=== PATIENT | male | born 1960 | race Caucasian/White ===

== ENCOUNTER 2017-05-31 16:20 | Inpatient (IN) | payer OTHER ==
[2017-05-31] VITALS (13 sets, daily range): BP systolic 124–162; BP diastolic 82–98; PULSE 89–112; RESP 16–29; O2SAT 92–96
[~2017-05-31] VITALS: Ht 180.3 cm; Wt 101.4 kg
[~2017-05-31 16:20] MED LIST: CAPE500T15 PO; LISI10TA PO; MESA1.2T2 PO; OMEP20CA11 PO; OMEP20TA24 PO; URSO300C2 PO
--- NOTE | 2017-05-31 17:03 | DRSVH ---
PROCEDURE: X-RAY CHEST ONE VIEW, PORTABLE ([id number]) INDICATIONS: SOB TECHNIQUE: One view of the chest was acquired. COMPARISON: [facility], , CHEST 1VW (PORTABLE), 03/08/2014, 6:43. FINDINGS: Surgical changes and devices: None. Lungs and pleura: No pleural effusions or pneumothorax. Lungs are clear. Mediastinum: Mediastinal contours appear normal. Heart size is normal. Bones and chest wall: No suspicious bony lesions. Overlying soft tissues appear unremarkable. IMPRESSION: No acute process. Dictated by: Ashley Morley M.D. on 05/31/2017 at 17:01 Approved by: Ashley Morley M.D. on 05/31/2017 at 17:01
[2017-05-31 17:58] LABS: EOSINOPHILS % (AUTO) 2.8 % (0-5)
[2017-05-31 18:01] LABS: BASOPHILS % (AUTO) 1.5 % (0-3); MONOCYTES % (AUTO) 10.6 % (4-12); Mean Corpuscular Hemoglobin 30.2 pg (27.0-35.0); Mean Corpuscular Volume 87.5 fL (81-100); NEUTROPHILS % (AUTO) 63.4 % (40-74); Platelet Count 280 bil/L (150-400)
[2017-05-31 18:13] LABS: INR 1.22 ratio
[2017-05-31 18:23] LABS: Magnesium 1.4 mg/dL (1.6-2.6)
--- NOTE | 2017-05-31 18:39 | ED.REPORT ---
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 His current symptoms feel similar to his previous PE and similar to his previous infections that required hospitalization at . Patient recently began Eliquis a few weeks ago and has been taking his antirejection medication as prescribed. Recent associated symptoms include fatigue, chills and general malaise. Patient reports that his symptoms have been constant since onset. His symptoms are not exacerbated by deep breath and are not relieved by anything. He denies any recent fever, abdominal pain, headache, unilateral weakness/ numbness, nausea, vomiting, diarrhea or chest pain. Nursing Notes Stated Complaint: SOB,POSS PULMONARY EMBOLISM Chief Complaint: Chest Pain Nursing Notes Reviewed: Yes Allergies: Coded Allergies: No Known Allergies (Unverified Allergy, Unknown, 11/22/16) Scheduled Capecitabine (Capecitabine) 500 Mg Tablet 1,500 MG PO Q12H ONE WEEK ON TWO WEEKS OFF Lisinopril (Lisinopril) 10 Mg Tablet 10 MG PO DAILY Mesalamine (Lialda) 1.2 Gm Tablet. 1.2 GM PO BID Omeprazole (Omeprazole) 20 Mg Capsule. 20 MG PO BID Omeprazole Magnesium (Prilosec Otc) 20 Mg Tablet. 20 MG PO BID Ursodiol (Ursodiol) 300 Mg Capsule 600 MG PO BID General Time Seen by MD: 16:41 Chief Complaint Other (SOB) Hx Obtained From: Patient Arrived By: Walk-in Sudden in Onset?: No Onset Occurred: 4 days ago Symptom Duration: Since onset Associated with: Reports: Shortness of breath, Denies: Abdominal pain, Chest pain, Fever, Headache, Nausea, Numb extremities , Vomiting, Weakness Pertinent Negative: Pt denies other symptoms Pertinent Negative: Exacerbated by nothing, Relieved by nothing Recent Healthcare: Recent doctor visit, Recent hospitalization Past Medical History Past Medical History Liver transplant Crohn's disease Known PE Primary sclerosing cholangitis w/ hilar cholangiocarcinoma Past Surgical History Liver transplant Smoking History Never Smoker Social History Other Social History: Good social support, Local resident Ambulatory Status Independent Review of Systems Full Review of Systems Constitutional: Reports: Chills, Fatigue, Malaise, Denies: Fever Respiratory: Reports: Shortness of breath Cardiovascular: Denies: Chest pain GI: Denies: Abdominal pain, Diarrhea, Nausea, Vomiting Neurologic: Denies: Headache, Numbness, Weakness Complete sys rev & neg: except as marked. Physical Exam Nursing note and vitals reviewed. Constitutional: Well-developed, well-nourished. Not diaphoretic. Head: Normocephalic and atraumatic. Mouth/Throat: Oropharynx is clear and moist. No oropharyngeal exudate. Eyes: EOM are normal. Pupils are equal, round, and reactive to light. Neck: Supple, no tracheal deviation. Cardiovascular: Tachycardic, regular rhythm. Equal and intact distal pulses throughout. Pulmonary/Chest: Effort normal and breath sounds normal. No respiratory distress. Abdominal: Soft. No distension. There is no tenderness, rebound, or guarding. Bowel sounds present. Musculoskeletal: Range of motion grossly intact, moving all extremities. No edema or tenderness appreciated. Neurological: AOx3. Grossly nonfocal exam. Strength and sensation intact and equal to bilateral upper and lower extremities. Skin: Warm and dry, no rashes or pallor appreciated. Psychiatric: Appropriate mood and affect. Behavior appears normal. Vital Signs Vital Signs Date Time Temp Pulse Resp B/P Pulse Ox O2 Delivery O2 Flow Rate FiO2 05/31/17 21:15 99 27 156/87 96 Nasal Cannula 2 05/31/17 21:00 98 29 162/87 96 Nasal Cannula 2 05/31/17 20:45 97 26 160/86 95 Room Air 05/31/17 19:15 106 26 152/98 94 Room Air 05/31/17 19:00 103 28 136/85 92 Room Air 05/31/17 18:30 104 26 129/86 93 Room Air 05/31/17 18:00 103 27 138/82 93 Room Air 05/31/17 17:45 104 25 138/82 94 Room Air 05/31/17 17:15 102 26 135/84 93 Room Air 05/31/17 16:53 100 17 136/89 96 Room Air 05/31/17 16:25 38 112 16 124/87 96 Room Air Interpretation & Diagnostics Lab Results Interpretation Result Diagram: 05/31/17 1750 05/31/17 1750 Test 05/31/17 17:50 05/31/17 18:05 White Blood Count 7.9th/mm3 (3.8-10.1) Red Blood Count 4.87mil/mm3 (4.40-5.80) Hemoglobin 14.7g/dL (13.8-17.2) Hematocrit 42.6% (41.0-50.0) Mean Corpuscular Volume 87.5fL (81-100) Mean Corpuscular Hemoglobin 30.2pg (27.0-35.0) Mean Corpuscular Hemoglobin Concent 34.5% (32.0-37.0) Red Cell Distribution Width 14.7% (12.3-15.4) Platelet Count 280bil/L (150-400) Neutrophils (%) (Auto) 63.4% (40-74) Lymphocytes (%) (Auto) 21.2% (14-46) Monocytes (%) (Auto) 10.6% (4-12) Eosinophils (%) (Auto) 2.8% (0-5) Basophils (%) (Auto) 1.5% (0-3) Prothrombin Time 13.1sec (8.1-12.5) Prothromb Time International Ratio 1.22ratio Activated Partial Thromboplast Time 31.7sec (22.8-33.0) Sodium Level 129mEq/L (134-144) Potassium Level 4.8mEq/L (3.5-5.2) Chloride Level 91mEq/L (97-108) Carbon Dioxide Level 19mmol/L (18-29) Blood Urea Nitrogen 17mg/dL (6-24) Creatinine 1.20mg/dL (0.76-1.27) Estimat Glomerular Filtration Rate 66mL/min (>59) Glucose Level 145mg/dL (60-99) Calcium Level 8.9mg/dL (8.5-10.1) Magnesium Level 1.4mg/dL (1.6-2.6) Total Bilirubin 0.7mg/dL (0.0-1.2) Aspartate Amino Transf (AST/SGOT) 22U/L (0-50) Alanine Aminotransferase (ALT/SGPT) 23U/L (0-44) Alkaline Phosphatase 146U/L (25-150) Troponin T < 0.010ug/L (0.0-0.011) Total Protein 6.9g/dL (6.4-8.4) Albumin 3.8g/dL (3.4-5.0) Lipase 7U/L (13-60) Lactic Acid Level 1.9mmol/L (0.4-2.0) ECG Interpretation ECG Interpretation: Sinus tachycardia Rate 104 Q wave and T wave inversions in V3 No prior for comparison Time: 17:24 Interpreted by: ED physician X-Ray Chest Interpretation Chest Xray Interpretation: IMPRESSION: No acute process Dictated by: Ashley Morley M.D. on 05/31/2017 at 17:01 Interpretation / Wet Read by: Interpret - Radiologist CT Chest Interpretation IMPRESSION: 1. Right lower lobe pulmonary embolus. 2. Small hiatal hernia. 3. Small amount of perihepatic ascites. 4. Findings discussed with Nehemias Wilkinson on 05.31.17 at 1952 hrs. Dictated by: Ashley Morley M.D. on 05/31/2017 at 19:45 Study type: CT pulm angiogram Interpretation / Wet Read by: Interpret - Radiologist Re-Eval/Medical Decision Med Decision/Clinical Course In summary, 57-year-old male with a history of primary sclerosing cholangitis with hilar cholangiocarcinoma status post radiation therapy and liver transplant in December presenting to the ED for evaluation of worsening shortness of breath over the past 4 days. Differential is broad and includes pulmonary embolus, ACS, anemia, acute infectious process such as a pneumonia or UTI, transplant rejection. No chest pain, EKG does have T-wave inversions in V3 , no prior for comparison, but otherwise no acute ischemic changes. Chest x- ray with no evidence of pneumonia. CMP notable for a sodium of 129, magnesium of 1.4 (repleted here in the ED). CBC grossly within normal limits. CT scan demonstrates a right lower lobe pulmonary embolus, small hiatal hernia, and a small amount of perihepatic ascites. Given the patient's complex history, his transplant team at [facility] in [place] was contacted; please see below for details. Patient started on a heparin drip here in the ED for his pulmonary embolus; he may need to transition to warfarin if it is felt that his current anticoagulation is insufficient. Discussed at length with the patient. Agreeable to the plan as stated, no further questions. Time of Eval: 19:23 Re-Evaluation/Progress Note: Family will attempt to find the patient's transplant coodinator. Time of Eval: 20:07 Re-Evaluation/Progress Note: Patient's symptoms have improved. He is informed of his postive CT result at this time. He is agreeable to admission at this time. Time of Eval: 20:57 Patient Status: Condition improved Re-Evaluation/Progress Note: Discussed consultation recommendations with the patient. Consultation #1: Referral / Consult Name: Jaron Magallanes MD Consulted With: Hospitalist Call Returned at: 22:23 Transliterator: Will see patient, Agrees with eval, Agrees with plan, Accepts admit Consultation #2: Call Returned at: 20:42 Transliterator: Agrees with eval, Agrees with plan Note: Paint Formulator (Vijay LAY) approves plan to use Heparin Consultation #3: Call Returned at: 20:53 Transliterator: Agrees with eval, Agrees with plan Note: Dr. Nguyễn - Agrees with plan to admit and gradually switch the patient from Eliquis to Warfarin. ) Counseled Regarding: Diagnosis, Lab results, Need for admission Discharge & Departure Primary Impression: Pulmonary embolism Pulmonary embolism type: other Chronicity: acute Acute cor pulmonale presence: without acute cor pulmonale Qualified Code: I26.99 - Other pulmonary embolism without acute cor pulmonale Additional Impression: Ascites of liver Disposition: ADMITTED TO HOSPITAL Discharge Condition All VS Reviewed: Yes Condition: Stable Referrals: Va Ro PA-C (PCP) Crit Care Except Billable Proc Time Spent: 75-104 minutes Services Performed: Patient management by me, Time spent at bedside, Reviewing test results, Reviewing imaging, Discussing patient care, Documentation in record, Time with fam/surrogate Scribe Attestation Portions of this note were transcribed by Dalila Nicole. I, Dr. Wilkinson personally performed the history, physical exam and medical decision-making; I reviewed and confirmed the accuracy of the information in the transcribed note. Signed by: Rigo Mccall, 05/31/17 0502. copies to: Va Ro PA-C, William B MD May 31, 2017 18:39 DALILA NICOLE May 31, 2017 19:12 Crit Care Except Billable Proc Time Spent: 75-104 minutes Services Performed: Patient management by me, Time spent at bedside, Reviewing test results, Reviewing imaging, Discussing patient care, Documentation in record, Time with fam/surrogate Scribe Attestation Portions of this note were transcribed by Dalila Nicole. I, Dr. Wilkinson personally performed the history, physical exam and medical decision-making; I reviewed and confirmed the accuracy of the information in the transcribed note. Signed by: Rigo Mccall, 05/31/17 2235. copies to: Va Ro PA-C, William B MD May 31, 2017 18:39 DALILA NICOLE May 31, 2017 19:12
[2017-05-31] MEDS ORDERED: Magnesium Sulf 2 Gm/50mL Water 2 GM in IV Premix 1 EACH IV ONE (19:25)
[2017-05-31] MEDS ORDERED: 0.9% Sodium Chloride 1,000 ML IV ONE (19:25)
--- NOTE | 2017-05-31 19:53 | DRSVH ---
PROCEDURE: CT ANGIO CHEST PULMONARY EMBOLISM ([id number]) INDICATIONS: dyspnea w/ hx of cancer; eval PE, other abnl TECHNIQUE: After the administration of intravenous contrast, 2 mm thick sections acquired from the pulmonary api lawanda to the posterior costophrenic angles. 3-dimensional maximum intensity projection (MIP) coronal a nd sagittal reformats were then acquired through the thorax. For radiation dose reduction, the follo wing was used: automated exposure control, adjustment of mA and/or kV according to patient size. COMPARISON: [facility], MR, ABDOMEN W/O CONTRAST, 01/15/2014, 18:26. FINDINGS: Image quality: Excellent. Pulmonary arteries: Pulmonary arteries are normal in size. Tubular filling defects are seen within t he subsegmental atelectasis is present in Lungs and pleura: Lungs are clear. No pleural effusions or pneumothorax. Central and peripheral ai rways are patent. Mediastinum: Heart size is normal, without pericardial effusion. No mediastinal or hilar adenopathy . Thoracic aorta is normal in caliber and enhancement. Esophagus is normal in caliber. There is a s mall hiatal hernia. Bones and chest wall: No suspicious bony lesions. Ribs and thoracic spine appear intact throughout. Thyroid gland is unremarkable. No axillary or supraclavicular adenopathy. Abdomen: Visualized portions of the upper abdomen demonstrate a small amount of perihepatic ascites as well as pneumobilia. IMPRESSION: 1. Right lower lobe pulmonary embolus. 2. Small hiatal hernia. 3. Small amount of perihepatic ascites. 4. Findings discussed with Nehemias Wilkinson on 05.31.17 at 1952 hrs. Dictated by: Ashley Morley M.D. on 05/31/2017 at 19:45 Approved by: Ashley Morley M.D. on 05/31/2017 at 19:51
[2017-05-31] MEDS ORDERED: Heparin 5,000 Unit/mL Inj IVPUSH ONE ×2 (20:45→21:20)
[2017-05-31] MEDS ORDERED: Heparin 25K Unit/500mL 0.45 NS 25,000 UNIT in IV Premix 1 EACH IV ONE ×2 (20:45→21:20)
[2017-05-31] MEDS ORDERED: Polyethylene Glycol (PEG) 17 Gm Powder PO PRN (23:20)
[2017-05-31] MEDS ORDERED: Heparin 5,000 Unit/mL Inj IVPUSH PRN (23:20)
[2017-05-31] MEDS ORDERED: 0.9% Sodium Chloride 500 ML IV ONE (23:20)
[2017-05-31] MEDS ORDERED: Ondansetron 2 mg/mL 2 mL Inj IVPUSH PRN (23:20)
[2017-05-31] MEDS ORDERED: Senna-Docusate 8.6-50 mg Tablet PO PRN (23:20)
[2017-05-31] MEDS ORDERED: Alum-Mag Hydrox-Simeth 30 mL Suspension PO PRN (23:20)
[2017-05-31] MEDS ORDERED: Heparin 25K Unit/500mL 0.45 NS 25,000 UNIT in IV Premix 1 EACH IV SCH (23:20)
[2017-05-31] MEDS ORDERED: Magnesium Chloride SR 64 mg ER24 Tablet PO SCH (23:25)
[2017-06-01] VITALS (8 sets, daily range): BP systolic 124–149; BP diastolic 79–90; PULSE 89–108; RESP 16–18; O2SAT 90–96
[2017-06-01] MEDS: Sodium Chloride LOK Flush 10 mL Syringe IVFLUSH SCH ×4 (00:30→23:32)
[2017-06-01 01:06] LABS: APPEARANCE,URINE CLEAR (CLEAR,HAZY); COLOR,URINE YELLOW (YELLOW); OCCULT BLOOD,URINE NEGATIVE (NEGATIVE); PH,URINE 5.5 (5.0-8.0)
[2017-06-01 01:08] LABS: UROBILINOGEN,URINE NORMAL (NORMAL)
--- NOTE | 2017-06-01 02:20 | PCM.HPMED ---
Subjective Date of Service May 31, 2017 Primary Provider: Admitting Physician: Jaron Magallanes MD Primary Care Physician: Va Ro PA-C Attending Physician: Jaron Magallanes MD Chief Complaint: shortness of breath History of Present Illness: Abhijeet is a 57 yo M with a complex medical history who presents for concerns of acute onset of SOB and lethargy x 4 days. His history is pertinent for Crohn's disease, Dm2, and also primary sclerosing cholangitis with cholangiocarcinoma status post radiation therapy and recent liver transplant approximately 5 months ago in [place]. Patient reports that he had a 4 month follow-up of his liver transplantation in April, when it was found that he had a pulmonary emboli. As a result he was placed on Lovenox injection until he returned to [place]. Here he was switched from the injections to Eliquis, which he reports taking diligently for the past 1.5 weeks. He states that he was recovering well from the surgery and his breathing was somewhat diminished but at baseline prior to this episode. Four days ago, he noted sudden onset of SOB and gradual worsening. He noted some palpitations, but denies any CP, ROMERO, diaphoresis, abd pain, or fevers/chills. 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 He denies any recent illnesses and has not had a flare up of his Crohn's disease. He has had poor PO intake due to his SOB and being more lethargic in the last few days. He has slept most of the weekend and finally came in when his symptoms did not improve. He is on Bactrim, Fluconazole, and Valganciclovir prophylaxis until 06/22. In the ED he was noted be febrile with temperature of 38 and tachycardic with a pulse of 112 but normotensive His CBC was benign CMP was notable for a mag of 1.4 and mildly decreased sodium and chloride levels. Due to symptoms, CTA was performed which showed a right lower lobe pulmonary embolus. ED physician discussed the results with patient's advertising coordinator and Dr. Nguyễn who recommended starting heparin drip and is switching from Eliquis to warfarin Review of Systems: Comprehensive review of systems was conducted with the patient and found to be negative except as noted above in HPI. Allergies Coded Allergies: No Known Allergies (Unverified Allergy, Unknown, 11/22/16) Home Medications From [employer] Medication Name Directions Bactrim 400 mg-80 mg tablet take 1 tablet by ORAL route every day until 06/22/17 Blood Glucose Test strips Use 1 Strip by External route 2 times every day to check blood sugars fluconazole 200 mg tablet take 1 tablet by oral route every day glimepiride 2 mg tablet take 1 tablet by oral route every day Lancets,Thin use to test BS 2 times daily Lialda 1.2 g tablet,delayed release take 2 tablet by oral route every day with a meal Lovenox 100 mg/mL subcutaneous syringe inject (1MG/KG) by subcutaneous route every 12 hours metformin ER 500 mg tablet,extended release 24 hr take 2 tablet by oral route 2 times every day with the evening meal metoprolol tartrate 50 mg tablet take 1 tablet by oral route 2 times every day with meals Prilosec 20 mg capsule,delayed release take 1 capsule by oral route every day before a meal tacrolimus 0.5 mg capsule take 1 capsule by oral route every day ursodiol 250 mg tablet take 2 - 4 (3.25MG/KG) by oral route 2 times every day with food valganciclovir 450 mg tablet take 2 tablet by oral route every day with food until 06/22/17 PMH Primary sclerosing cholangitis Cholangiocarcinoma status post radiation and liver transplantation in [place] in early 2016 Crohn's disease T2DM HTN Surgical History Appendectomy Liver transplantation in 2017 Family History Family history of diabetes Social History Occupation: moving picture producer Hx Alcohol Use: No Hx Substance Use: No Hx Tobacco Use: No Smoking Status: Never Smoker Living Arrangement: with Family Exam Vital Signs Vital Sign - Last Date Time Temp Pulse Resp B/P Pulse Ox O2 Delivery O2 Flow Rate FiO2 05/31/17 21:15 99 27 156/87 96 Nasal Cannula 2 05/31/17 16:25 38 Exam General: Obese male who presented acute distress while lying down in bed HEENT: Normocephalic, atraumatic. External ears without defect. PERRLA, EOMI. Anicteric sclerae, moist conjunctivae, and no lid lag. Oropharynx mildly dry but pink Neck: Supple with full range of motion. No jugular venous distension. Cardiovascular: Regular rate and rhythm with soft systolic murmur Pulmonary: Clear to auscultation bilaterally with no crackles, wheezes, or rhonchi. Mildly increased respiratory effort while on 2L nasal cannula Abdomen: Bowel tones present. Soft, nontender, nondistended. No hepatosplenomegaly or masses appreciated. Large incision scar in wish bone formation Extremities: No clubbing, cyanosis, or edema noted Skin: Normal temperature, turgor, and texture; no rash, ulcers, or subcutaneous nodules appreciated. Neurological: Cranial nerves grossly intact. Normal muscle strength, tone, and bulk. Reflexes, coordination, and sensory function within normal limits. No known gait impairment. Psychiatric: Normal mood and affect. Alert and oriented to person, place, and time. Cooperative and pleasant Lab and Diagnostics Result Diagram: 05/31/17174905/31/171749 X-Rays, CTs and MRIs PROCEDURE: CT ANGIO CHEST PULMONARY EMBOLISM ([id number]) IMPRESSION: 1. Right lower lobe pulmonary embolus. 2. Small hiatal hernia. 3. Small amount of perihepatic ascites. 4. Findings discussed with Nehemias Wilkinson on 05.31.17 at 1952 hrs. PROCEDURE: X-RAY CHEST ONE VIEW, PORTABLE ([id number]) IMPRESSION: No acute process. Assessment & Plan Abhijeet is a 57 yo M with a complex medical history who presents for concerns of acute onset of SOB and lethargy x 4 days. His history is pertinent for Crohn's disease, Dm2, and also primary sclerosing cholangitis with cholangiocarcinoma status post radiation therapy and recent liver transplant approximately 5 months ago in [place]. He is admitted for acute recurrent Pulmonary emboli despite being on Eliquis. Acute Recurrent Pulmonary Emboli, POA Pt was placed on PE heparin gtt protocol in the ED per recommendation of Transplant physician, Dr. Lebron, in [place]. They recommended switching to Warfarin, but considering the recurrence, perhaps an IVC filter may be indicated also. Patient's Oncologist was Dr. Gonzalez, consider consulting him in the AM for further recommendations Will place on Telemetry for CV monitoring Will order Echo and trend Troponins to assess heart function with the multiple PEs. Fever, POA Likely due to the PE, but will continue monitoring for any other s/s of infection. He denied any fevers/chills, or pain on admit. Inflammatory markers pending H/o of Liver Transplantation, POA Uncertain of extent of transplant. May need to obtain records and consult the attending provider for further information. Dr. Nguyễn -([phone]) Will continue his home prophylaxis meds There was some noted caitlin-hepatic ascites, which may need further evaluation if he develops any abd pain. Dehydration, POA Patient's poor PO intake in the last few days may be why his Sodium and Chloride is mildly low Will continue to hydrate with 500 mls of IV NS at 150cc/hr. He received 1 L of NS bolus in the ED Continue to monitor electrolytes T2DM, POA Last A1c a month ago was 7.2. Will hold his Glipizide and metformin due to recent contrast imaging. Crohn's Disease, POA Stable, not in exacerbation. Will continue his home medications when Med Rec is complete Essential HTN, POA Stable, continue home medications when Med Rec is complete CODE STATUS: Full resuscitation Patient is admitted under inpatient status with expected length of stay greater than 2 midnights due to severity of presenting symptoms, risk of adverse event, and complexity of treatment plan. Pain Evaluation: Adequate Pain Control VTE Prophylaxis: Other (heparin drip) Resuscitation Status: CPR: Attempt Resuscitation Attending Statement The patient was seen and examined together with Dr. Aparicio on 05/31 and I agree with the history, exam and plan as outlined in the note above. Wilmer Aparicio DO May 31, 2017 23:35 Jaron Magallanes MD Jun 01, 2017 02:38
[2017-06-01 03:57] LABS: BASOPHILS % (AUTO) 1.6 % (0-3); EOSINOPHILS % (AUTO) 3.8 % (0-5); MONOCYTES % (AUTO) 7.3 % (4-12); Mean Corpuscular Hemoglobin 30.5 pg (27.0-35.0); Mean Corpuscular Volume 87.8 fL (81-100); NEUTROPHILS % (AUTO) 65.1 % (40-74); Platelet Count 280 bil/L (150-400)
[2017-06-01 04:50] LABS: TROPONIN T 0.01 ug/L (0.0-0.011)
[2017-06-01 05:16] LABS: Magnesium 1.8 mg/dL (1.6-2.6)
--- NOTE | 2017-06-01 05:39 | NUR ---
ED Admission/ Heparin Infusion Received from ED via gurney, ambulated to bed without symptom. A/O, able to verbalize needs. Denies SOB, or chest pain. Reports recent symptoms included fatigue, chills, general malaise, and SOB x4days. Indicates recent history of PE, on Eliquis. Current Heparin gtt, titrated per PE protocol. Second IV started in right hand, NS infusing. VSS stable. Tele: Sinus Tach in 90s, SPo2 96% on RA. to return in am with home medication for reconciliation. Heparin infusing @ 18mg/kg (per ED start), PTT draw @ 0400, reported critical value- Heparin stopped. MD notified (Dr. QUINN), orders to repeat PTT, every hr. until therapeutic. Report given to on coming RN.
[2017-06-01] MEDS ORDERED: METF-778 PO (09:08)
[2017-06-01] MEDS ORDERED: METO50TA3 PO (09:12)
[2017-06-01] MEDS ORDERED: ATOR20TA PO (09:12)
[2017-06-01] MEDS ORDERED: TACR0.5P MC (09:12)
[2017-06-01] MEDS ORDERED: APIX5TAB PO (09:12)
[2017-06-01] MEDS ORDERED: SULF1TAB34 PO (09:16)
[2017-06-01] MEDS ORDERED: FLUC200T5 PO (09:16)
--- NOTE | 2017-06-01 10:00 | NUR ---
Med Rec Medication Rec complete via pt source interview and home medication bottles that brought in. will take home medications when she leaves later tonight. MD aware and will order medications to be started.
[2017-06-01] MEDS: Pantoprazole 40 mg ER24 Tablet PO SCH ×2 (10:48→20:49)
[2017-06-01] MEDS: Trimethoprim-Sulfa 160 mg-800 mg Tablet PO SCH (10:48)
[2017-06-01] MEDS ORDERED: Glucose 40% Oral Gel 15 Gm Tube PO PRN (13:45)
[2017-06-01] MEDS: Insulin LISPRO 300 Unit/3 mL Inj SUBQ SCH ×2 (17:13→22:00)
[2017-06-01] MEDS ORDERED: Meropenem Inj 1,000 MG in 0.9% Sodium Chloride 100 ML IV SCH (19:10)
[2017-06-01] MEDS ORDERED: MEROPENEM IV SCH (20:05)
[2017-06-01] MEDS ORDERED: SODIUM CHLORIDE 0.9% IV SCH (20:05)
[2017-06-01] MEDS: DAPTOMYCIN IV SCH (20:47)
[2017-06-01] MEDS: SODIUM CHLORIDE 0.9% IV SCH (20:47)
[2017-06-01] MEDS: Meropenem Inj 2,000 MG in 0.9% Sodium Chloride 100 ML IV SCH (20:51)
--- NOTE | 2017-06-01 21:40 | PCM.PNMED ---
Subjective Date of Service Jun 01, 2017 Subjective Today, Mr. Ramírez is resting in bed comfortably and in no acute distress. He is not feeling any pain currently at this time. He says he's breathing well on 4L of oxygen. He is not having any nausea, vomiting. Around 1700, he started to spike a fever after being afebrile for some time and having body aches. He has a history of needing frequent ERCP due to his prior history of primary schlerosing cholangitis and cholangiocarcinoma. He mentions his symptoms feel similar to the times he has needed urgent ERCP in the past. Exam Vital Signs Vital Sign - Last Date Time Temp Pulse Resp B/P Pulse Ox O2 Delivery O2 Flow Rate FiO2 06/01/17 03:33 37.9 94 18 131/79 92 Room Air 05/31/17 21:15 2 Intake and Output 05/31/17 05/31/17 06/01/17 Cumulative From/Thru 15:00 23:00 07:00 05/31/17 16:25 - 06/01/17 05:20 Intake Total 1000 ml 948 ml 1948 ml Output Total 350 ml 350 ml Balance 1000 ml 598 ml 1598 ml Intake Oral 200 ml 200 ml IV Total 1000 ml 748 ml 1748 ml Output Urine Total 350 ml 350 ml # Bowel Movements 0 0 Exam General: Obese male who presented acute distress while lying down in bed HEENT: Normocephalic, atraumatic. External ears without defect. PERRLA, EOMI. Anicteric sclerae, moist conjunctivae. Neck: Supple with full range of motion. No jugular venous distension. Cardiovascular: Regular rate and rhythm with no murmurs, rubs or gallops. Pulmonary: Clear to auscultation bilaterally with no crackles, wheezes, or rhonchi. Mildly increased respiratory effort while on 2L nasal cannula Abdomen: Bowel tones present. Soft, nontender, nondistended. No hepatosplenomegaly or masses appreciated. Large incision scar in wish bone formation Extremities: No clubbing, cyanosis, or edema noted Skin: Normal temperature, turgor, and texture; no rash, ulcers, or subcutaneous nodules appreciated. Neurological: Cranial nerves grossly intact. Normal muscle strength, tone, and bulk. Psychiatric: Normal mood and affect. Alert and oriented to person, place, and time. Cooperative and pleasant IVs and Medications Medications Reviewed: Medications were reviewed in detail Lab and Diagnostics Item Value Date Time Activated Partial Thromboplast Time 222.9 sec *H 06/01/17 0505 Activated Partial Thromboplast Time 248.8 sec *H 06/01/17 0330 Prothrombin Time 13.1 sec H 05/31/17 1750 Prothromb Time International Ratio 1.22 ratio 05/31/17 1750 Troponin T 0.010 ug/L 06/01/17 0330 Troponin T 0.010 ug/L 06/01/17 0037 C-Reactive Protein 5.1 mg/dL H 06/01/17 0143 Urine Hyaline Casts Rare /lpf 06/01/17 0047 Urine Bacteria Few /hpf 06/01/17 0047 Urine Epithelial Cells Occasional /hpf 06/01/17 0047 Urine WBC 0-5 /hpf 06/01/17 0047 Urine RBC 0-2 /hpf 06/01/17 0047 Urine Leukocyte Esterase Negative 06/01/17 0047 Urine Nitrite Negative 06/01/17 0047 Urine Specific [place] 1.070 06/01/17 0047 Urine pH 5.5 06/01/17 0047 Urine Color Yellow 06/01/17 0047 Result Diagram: 06/01/17 0330 06/01/17 0330 X-Rays, CTs and MRIs PROCEDURE: CT ANGIO CHEST PULMONARY EMBOLISM ([id number]) IMPRESSION: 1. Right lower lobe pulmonary embolus. 2. Small hiatal hernia. 3. Small amount of perihepatic ascites. 4. Findings discussed with Nehemias Wilkinson on 05.31.17 at 1952 hrs. PROCEDURE: X-RAY CHEST ONE VIEW, PORTABLE ([id number]) IMPRESSION: No acute process. Assessment & Plan Abhijeet is a 57 yo M with a complex medical history who presents for concerns of acute onset of SOB and lethargy x 4 days. His history is pertinent for Crohn's disease, Dm2, and also primary sclerosing cholangitis with cholangiocarcinoma status post radiation therapy and recent liver transplant approximately 5 months ago in [place]. He is admitted for acute recurrent Pulmonary emboli despite being on Eliquis. Acute Recurrent Pulmonary Emboli, Present on admission Per recommendation of Dr. Gonzalez, patient switched to Xarelto. Started 15 mg BID. It was recommended not to start Warfarin as it is difficult to monitor with prophylactic antibiotics and tacrolimus. Will place on Telemetry for CV monitoring Echocardiogram is pending, troponin x2 negative - Dr. Gonzalez will see patient 06/02/17 Fever, Present on admission, active Likely due to the PE, but will continue monitoring for any other s/s of infection. He denied any fevers/chills, or pain on admit. - After extensive discussion with Dr. Mena and Dr. Powell ( GI), they both did not feel this was related to his history of primary sclerosing cholangitis as the liver function tests are normal. Dr. Powell recommended if liver function tests become abnormal or if gram negative rods are seen on blood culture, then to consider further management. Both doctors reassured that pneumobilia on CT is likely normal given his liver transplant. - Infectious Disease consulted. - Repeat Blood cultures. Ordered Fungal blood cultures, MRSA swab, fungitell assay - Started empirically on IV daptomycin and meropenem given complex medical history. H/o of Liver Transplantation, Present on admission Uncertain of extent of transplant. May need to obtain records and consult the attending provider for further information. Dr. Nguyễn -() Will continue his home prophylaxis meds, fluconazole, TMP-SMX There was some noted caitlin-hepatic ascites, which may need further evaluation if he develops any abd pain. Dehydration, Present on admission Patient's poor PO intake in the last few days may be why his Sodium and Chloride is mildly low Continue to monitor electrolytes Diabetes Mellitus Type 2, chronic Last A1c a month ago was 7.2. Will hold his Glipizide and metformin due to recent contrast imaging. Crohn's Disease, chronic Stable, not in exacerbation. Essential HTN, chronic VTE Prophylaxis: Other (heparin drip) Resuscitation Status: CPR: Attempt Resuscitation Attending Statement The patient was seen and examined together with Dr. Robledo on 06/01/2017 and I agree with the history, exam and plan as outlined in the note above. . Jaron Robledo DO Jun 01, 2017 06:42 Avelino Kim MD Jun 04, 2017 17:21
[2017-06-02] VITALS (8 sets, daily range): BP systolic 117–133; BP diastolic 74–89; PULSE 84–132; RESP 16–22; O2SAT 87–96
[2017-06-02] MEDS: Meropenem Inj 2,000 MG in 0.9% Sodium Chloride 100 ML IV SCH ×3 (04:55→21:00)
[2017-06-02 04:59] LABS: MONOCYTES % (AUTO) 9 % (4-12); Mean Corpuscular Hemoglobin 30.6 pg (27.0-35.0); Mean Corpuscular Volume 89 fL (81-100); NEUTROPHILS % (AUTO) 62 % (40-74); Platelet Count 264 bil/L (150-400)
[2017-06-02 05:00] LABS: BASOPHILS % (AUTO) 2 % (0-3); EOSINOPHILS % (AUTO) 3 % (0-5)
--- NOTE | 2017-06-02 06:34 | NUR ---
Febrile Assumed care ~193. Pt. A/O x3, GARRIDO, resting sporadically with eyes closed. Febrile this shift, given 325mg Tylenol per order (Dr. QUINN). Infectious disease MD consulted ([place]) and started on serial antibiotics, began after culture spec. obtained. Tele remains ST in 100s. Indicated no further needs, safety checks in place. Report given to on coming RN
[2017-06-02] MEDS: Insulin LISPRO 300 Unit/3 mL Inj SUBQ SCH ×4 (08:00→22:00)
--- NOTE | 2017-06-02 08:24 | DRSVH ---
Formerly [facility] [address] [place] [address] Echocardiogram Report Name: CHIP DILLON JStudy Date : 06/01/2017 Height: 71 in Hospital Exam Location: [facility] Weight: 22 6 lb Gender: Male BSA: 2.2 m2 : 1960 Age: 57 yrs BP: 131/79 mmHg Reason For Study: Pulmonary- Embolism Ordering Physician: HOSPITALIST [facility] Performed By: Abby Nuñez Referring Physician[facility] Interpretation Summary The left ventricle is normal in size, wall thickness, and systolic function without any focal wall motion abnormalities. The ejection fraction is estimated to be 65-70%. The right ventricle is normal in size and function. Pulmonary artery pressures cannot be estimated because of the lack of a measurable TR jet velocity. Both atria are normal in size. There is no significant valvular heart disease. The ascending aorta is mild-moderately enlarged. Procedure: A two-dimensional transthoracic echocardiogram with color flow and Doppler was performed. The study quality was technically difficult. There is no prior echocardiogram noted for this patient. A contrast injection of Definity was performed to improve assessment of LV function. The heart rate ranged between 90-106 bpm during the study. Left Ventricle: The left ventricle is normal in size, wall thickness, and systolic function without any focal wall motion abnormalities. The ejection fraction is estimated to be 65-70%. Assessment of diastolic parameters indicates normal left ventricular diastolic function and normal filling pressures. Right Ventricle: The right ventricle is normal in size and function. Atria: Both atria are normal in size. Inter-atrial septum not visualized. Mitral Valve: The mitral valve is normal in structure and function. There is no mitral regurgitation noted. Aortic Valve: The aortic valve is trileaflet. The aortic valve opens well. No aortic regurgitation is present. Tricuspid Valve: The tricuspid valve is not well visualized, but is grossly normal. There is a trace or physiologic amount of tricuspid regurgitation. Pulmonary artery pressures cannot be estimated because of the lack of a measurable TR jet velocity. Pulmonic Valve: The pulmonic valve leaflets are thin and pliable; valve motion is normal. There is a trace or physiologic amount of pulmonic regurgitation. There is no significant valvular heart disease. Great Vessels: The aortic root is normal size. The ascending aorta is mild- moderately enlarged. The aortic arch is normal in size. The pulmonary is not well visualized. The inferior vena cava was not visualized. Pericardium/ Pleura There is no pericardial effusion. There is no pleural effusion. MMode/2D Measurements & Calculations LVIDd: 5.0 cm RA long axis LVOT diam: 2.4 cm LVIDs: 2.4 cm LA A2 area: 18.6 cm AoV Opening FS: 51.1 % LA A4 area: 19.0 cm RA area EPSS: 0.25 cm LA length (vol) Ao root diam IVSd: 0.96 cm : 13.3 cm LVPWd: 0.91 cm LA vol: 60.0 ml RA vol asc Aorta Diam LA vol index : 27.8 ml RA Ao Arch Diam (Prox : 27.0 ml/m2 : 12.5 mm2 Trans): 3.2 cm LV christine. diameter/BSA LV sys. diameter/BSA RVD1 (basal) RVD2 (mid): 3.8 cm (cm/m^2): 2.2 (cm/m^2): 1.1 TAPSE: 2.1 cm Doppler Measurements & Calculations Ao V2 max MV E max johnny MV E/A: 0.84 PA V2 max : 136.7 cm/sec : 76.1 cm/sec Med Peak E' Johnny : 84.6 cm/sec Ao max PG MV A max johnny PA mean PG : 7.5 mmHg : 90.4 cm/sec E/E' med: 12.3 Ao mean PG MV P1/2t: 47.7 msec Lat Peak E' Johnny PA Accel Time : 0.08 sec LVOT Max Johnny E/E' lat: 8.5 : 112.6 cm/sec E/e' average DHAVAL(I,D): 3.9 cm sev ratio MV dec time MV P1/2t max johnny Ao V2 mean LV V1 max PG : 0.16 sec : 93.9 cm/sec MVA(P1/2t): 4.6 cm2 Ao V2 VTI: 21.5 cm LV V1 VTI DHAVAL(V,D): 3.8 cm2 : 18.3 cm PA V2 mean DHAVAL indexed to BSA : 67.1 cm/sec (cm^2/m^2): 1.8 Reading Physician:MILTON
[2017-06-02] MEDS: Sodium Chloride LOK Flush 10 mL Syringe IVFLUSH SCH ×2 (08:26→16:50)
[2017-06-02] MEDS: Trimethoprim-Sulfa 160 mg-800 mg Tablet PO SCH (08:27)
[2017-06-02] MEDS: Pantoprazole 40 mg ER24 Tablet PO SCH ×2 (08:28→20:59)
[2017-06-02] MEDS: SODIUM CHLORIDE 0.9% IV SCH (09:42)
[2017-06-02] MEDS: DAPTOMYCIN IV SCH (09:42)
--- NOTE | 2017-06-02 10:32 | PCM.PNMED ---
Subjective Date of Service Jun 02, 2017 Subjective Overnight Events: None Today, Mr. Ramírez is resting in bed comfortably and in no acute distress. He is improved from yesterday. He mentions he's been feeling well and currently denies and fever, chills, nausea, vomiting, chest pain, shortness of breath, abdominal pain. Exam Vital Signs Vital Sign - Last Date Time Temp Pulse Resp B/P Pulse Ox O2 Delivery O2 Flow Rate FiO2 06/02/17 05:38 84 06/02/17 03:33 38.2 18 133/79 96 Room Air 05/31/17 21:15 2 Intake and Output 06/01/17 06/01/17 06/02/17 Cumulative From/Thru 15:00 23:00 07:00 05/31/17 16:25 - 06/02/17 06:20 Intake Total 1291 ml 407 ml 3646 ml Output Total 650 ml 200 ml 1200 ml Balance 641 ml 207 ml 2446 ml Intake Oral 1040 ml 1240 ml IV Total 251 ml 207 ml 2206 ml Tube Feeding 200 ml 200 ml Output Urine Total 650 ml 200 ml 1200 ml # Bowel Movements 1 0 1 Exam General: Obese male, no acute distress, well nourished, mildly diaphoretic HEENT: Normocephalic, atraumatic. External ears without defect. Extraoccular movements intact. Anicteric sclerae, moist conjunctivae. Neck: Supple with full range of motion. No jugular venous distension. Cardiovascular: Regular rate and rhythm with no murmurs, rubs or gallops. Pulmonary: Clear to auscultation bilaterally with no crackles, wheezes, or rhonchi. On room air Abdomen: Bowel tones present. Soft, nontender, nondistended. No hepatosplenomegaly or masses appreciated. Large incision scar in wish bone formation Extremities: No clubbing, cyanosis, or edema noted Skin: Normal temperature, turgor, and texture; no rash, ulcers, or subcutaneous nodules appreciated. Neurological: Cranial nerves grossly intact. Normal muscle strength, tone, and bulk. Psychiatric: Normal mood and affect. Alert and oriented to person, place, and time. Cooperative and pleasant Lab and Diagnostics Item Value Date Time Procalcitonin 0.23 ng/mL H 06/01/17 1835 Procalcitonin 0.20 ng/mL H 06/02/17 0345 Streptozyme < 20.0 IU/mL 06/01/17 210 Result Diagram: 06/02/17 0345 06/02/17 0345 Microbiology Item Value Date Time MRSA (PCR) - Final Complete 06/01/172114 Nasopharangeal Blood Culture Received 06/01/17 1730 Blood Aerobic And Anaerobic Bottle Pending Blood Culture Received 06/01/17 1725 Blood Aerobic And Anaerobic Bottle Pending Blood Culture - Preliminary Resulted 05/31/17 1818 Blood Aerobic And Anaerobic Bottle NO GROWTH AFTER 24 HOURS Blood Culture - Preliminary Resulted 05/31/17 1805 Blood Aerobic And Anaerobic Bottle NO GROWTH AFTER 24 HOURS X-Rays, CTs and MRIs PROCEDURE: CT ANGIO CHEST PULMONARY EMBOLISM ([id number]) IMPRESSION: 1. Right lower lobe pulmonary embolus. 2. Small hiatal hernia. 3. Small amount of perihepatic ascites. 4. Findings discussed with Nehemias Wilkinson on 05.31.17 at 1952 hrs. PROCEDURE: X-RAY CHEST ONE VIEW, PORTABLE ([id number]) IMPRESSION: No acute process. Assessment & Plan Abhijeet is a 57 yo M with a complex medical history who presents for concerns of acute onset of SOB and lethargy x 4 days. His history is pertinent for Crohn's disease, Dm2, and also primary sclerosing cholangitis with cholangiocarcinoma status post radiation therapy and recent liver transplant approximately 5 months ago in [place]. He is admitted for acute recurrent Pulmonary emboli despite being on Eliquis 5 mg BID. Acute Recurrent Pulmonary Emboli, Present on admission Per recommendation of Dr. Gonzalez, patient switched to Xarelto. Started 15 mg BID. It was recommended not to start Warfarin as it is difficult to monitor with prophylactic antibiotics and tacrolimus. - Dr. Gonzalez will see patient today again at noon. Will await recommendations. - Will place on Telemetry for CV monitoring - Echocardiogram results as above, troponin x2 negative Fever, Present on admission, active Likely due to the PE, but will continue monitoring for any other s/s of infection. He denied any fevers/chills, or pain on admit. - After extensive discussion with Dr. Mena and Dr. Powell ( GI), they both did not feel this was related to his history of primary sclerosing cholangitis as the liver function tests are normal. Dr. Powell recommended if liver function tests become abnormal or if gram negative rods are seen on blood culture, then to consider further management. Both doctors reassured that pneumobilia on CT is likely normal given his liver transplant. - Infectious Disease consulted, recommend restarted valganciclovir. Discussion with [facility] by ID revealed the Donor of liver was CMV positive and valganciclovir should have been continued at least until June. - Pending Blood cultures, Fungal blood cultures, MRSA swab, fungitell assay - Currently on meropenem given complex medical history. IV daptomycin discontinued H/o of Liver Transplantation, Present on admission Uncertain of extent of transplant. May need to obtain records and consult the attending provider for further information. Dr. Nguyễn -()] To get in touch directly with transplant line for [facility] in [place], contact number is [phone]. Will continue his home prophylaxis meds, fluconazole, TMP-SMX There was some noted caitlin-hepatic ascites, which may need further evaluation if he develops any abdominal pain. Dehydration, Present on admission Patient's poor PO intake in the last few days may be why his Sodium and Chloride is mildly low Continue to monitor electrolytes Diabetes Mellitus Type 2, chronic Last A1c a month ago was 7.2. Will hold his Glipizide and metformin due to recent contrast imaging. Crohn's Disease, chronic Stable, not in exacerbation. Essential HTN, chronic Pain Evaluation: Adequate Pain Control VTE Prophylaxis: Other (heparin drip) Resuscitation Status: CPR: Attempt Resuscitation Attending Statement The patient was seen and examined together with Dr. Robledo on 06/02/2017 and I agree with the history, exam and plan as outlined in the note above. . Jaron Robledo DO Jun 02, 2017 06:27 Avelino Kim MD Jun 04, 2017 17:26
--- NOTE | 2017-06-02 12:03 | NUR ---
Blood Glucose Pt's blood glucose at lunch was 146, called for 1 unit Lispro. Lispro withheld due to the pt not having much of an appetite and doesn't normally eat much lunch. Will continue to monitor and check again.
--- NOTE | 2017-06-02 12:56 | CONS ---
[address] [address] CONSULTATION REPORT PATIENT: CHIP DILLON : 1960 MR#: [id number] ADMIT: 05/31/2017 JOB ID: [id number] DATE OF SERVICE: 06/02/2017 INFECTIOUS DISEASE CONSULTATION: I thank Dr. Juan for this timely consult. REASON FOR CONSULTATION: High fevers in a recent liver transplant patient. HISTORY OF PRESENT ILLNESS: The patient is a complex 57-year-old gentleman with an extraordinary past medical history which includes Crohn disease, diabetes, primary sclerosing cholangitis, cholangiocarcinoma, and eventually the liver transplant done in December of this year at the [facility] in [place], [place]. At his four month followup, which was last month at the [facility], a routine CT scan of the chest, abdomen, and pelvis done as part of the four month checkup showed a pulmonary embolism and the patient was started on Lovenox. Subsequently he was switched about 10 days or so ago to an oral anticoagulant, the agent Eliquis. About four days before yesterday's admission, however, the patient started to develop significant shortness of breath without any cough or chest pain. There was no associated fevers, chills, or diaphoresis up until basically the time of admission yesterday, and at that point he did develop a fever. This shortness of breath seemed to began gradually by the patient's report this morning, but I noticed that in the initial H and P he stated it was sudden in onset and then gradually worsened, which is a bit of a different story than I have received. In any event, it started four or five days ago and then gradually worsened to the point he sought evaluation yesterday for shortness of breath and fatigue, without fevers, chills, or sweats. The patient reports he had been compliant with his oral anticoagulant drug, but shortly after admission here a CT scan of the chest showed a right lower lobe pulmonary embolism. Whether or not this was in the same location or different than the PE that was documented last month at [facility] remains unclear. Note that the patient has been on prophylactic Bactrim and fluconazole, and reportedly valganciclovir prophylaxis with the plan to continue that for six months. The patient and his were asked about the CMV history of the patient as well as the donor of the liver but they are not aware of the CMV status of either one, though they did say that it came up in discussion following the transplant. Overnight the patient has had high fevers, as well as some chills, and this is new as he reports that during the first three or four days of this shortness of breath process there were no associated constitutional symptoms except for some fatigue. He has not had any sinus complaints nor has he had sore throat, nausea, vomiting, diarrhea or dysuria. He has been compliant with his prophylactic medications. PAST MEDICAL HISTORY: 1. Crohn's disease. 2. Diabetes mellitus. 3. Primary sclerosing cholangitis. 4. Cholangiocarcinoma status post radiation and liver transplant December 2016 at the [facility] in [place]. 5. Pulmonary embolism diagnosed April 2017 with initially Lovenox therapy followed by [facility]. MEDICATIONS: Home meds included the Bactrim, fluconazole, an oral hypoglycemic agent metformin, tacrolimus, and valganciclovir. Notes in the chart indicate that the valganciclovir was 900 mg a day and that the plan was to continue that at least through June 22. 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 He is a nonsmoker, nondrinker. Lives with his family on [place]. FAMILY HISTORY: Positive for diabetes, but negative in first- and second-degree relatives for diabetes. REVIEW OF SYSTEMS: A complete review of systems was done. This review of systems included the fact he has no headache, no visual change. No sinus complaint or drainage. No sore throat was reported nor odynophagia, dysphagia, productive cough, hemoptysis, or chest pain. The shortness of breath is described above. He has been lethargic and that has been quite profound for four or five days. No nausea, vomiting, diarrhea, or right upper quadrant pain. No dysuria, urgency, or frequency. No swelling of the lymph nodes. No swelling of the joints. No neurologic complaints. The remainder of the review of systems is negative. PHYSICAL EXAMINATION: Reveals an afebrile gentleman, temperature 37.7 currently, but he was febrile to 39.5 at 11 p.m. last night and 38.2 earlier this morning. Pulse is currently 110 and regular. Respiratory rate 16, blood pressure 129/89. He is saturating well on 2 L. On examination of the patient's mental status, he appears to be somewhat depressed and also appears to have a flat affect, but he is certainly awake, alert, and conversational. Examination of the head reveals no temporal wasting or trauma. Eyes without conjunctivitis or scleral icterus. Nose appears normal. No eschar is seen. Oral cavity without thrush, pharyngitis, or eschar. No hairy leukoplakia is noted. The neck is supple, without adenopathy. Lungs are completely clear posteriorly. Cardiac tones regular rate and rhythm without any murmurs, rubs, or gallops. The abdomen is notable for the significant scars associated with the liver transplantation procedure but these incisions have healed well and there is no drainage or tenderness. The patient's abdomen is entirely benign to palpation. No tenderness, focal masses, or abnormalities are noted, and especially not in the right upper quadrant. He does not have a Narvaez catheter, nor does he have suprapubic fullness or tenderness. He has no cervical or inguinal adenopathy. His lower extremities are well perfused, with normal pulses. No skin rash and no synovitis. Neurologically, he is intact. LABORATORY: Labs include white count normal since admission, currently 9400. Completely normal diff. Sed rate is 4. Creatinine 1.04. LFTs are normal. Albumin 3.2. Procalcitonin 0.2 and that has been measured twice. Urinalysis without white cells. Fungitell is pending. Galactomannan pending. Streptozyme negative. Urine Legionella antigen is negative. Nasal PCR for MRSA negative. Blood cultures x4 sets are pending, all negative. IMAGING: The CT scan was carefully reviewed on the monitor. There is no evidence for pulmonary infiltrate. IMPRESSION: This is an extremely complex case of a patient who underwent a liver transplant five months ago. His course was complicated by pulmonary embolism diagnosed one month ago during a routine four month followup at [facility]. He has been on anticoagulants since that time. The patient is now admitted with a 4-5 day history of some shortness of breath with profound lethargy which began apparently quite abruptly and then slowly progressed to the point where he sought evaluation and was admitted yesterday. A pulmonary CT scan done yesterday evening showed a right-sided pulmonary embolism but no infiltrate whatsoever. He has spiked high fevers up to and including 39.5 degrees since admission, but he looks entirely nontoxic and uninfected. His laboratory studies including white count, LFTs, procalcitonin, and sedimentation rate would all argue against an acute significant infection, as would his normal CT scan of the chest and basically normal physical examination. Pulmonary embolism in and of itself can produce fevers but these tend to be low grade. I am concerned about the temperature over 39 degrees, which would be inconsistent but not completely beyond the spectrum of what a pulmonary embolism could produce. It would be indeed odd if the patient had both an acute pulmonary embolism and the development of an acute fungal, bacterial, or viral infection, but this is not impossible in a patient with so much underlying comorbidity who is immunosuppressed by virtue of his recent transplant and tacrolimus therapy. At this point, however, there is no obvious source of infection and I think our initial broad-spectrum coverage which was started last night after some telephone consultation was adequate. The patient was initially started last night after a telephone discussion on daptomycin and meropenem while we gathered more data. At this point we do have back a negative MRSA screen as well as a completely normal CT scan of the chest, so I think it is reasonable to go ahead and drop the daptomycin at this point. RECOMMENDATIONS: 1. We are currently in the process of calling the [facility] in [place] to speak to the conference services coordinator and perhaps the Infectious Disease folks there about his pretransplant serologies and plans for prophylaxis, as well as to find out more about his CMV status as well as that of the donor. 2. Quantitative PCR for CMV on the blood has been ordered this morning. 3. We await the results of the many pending blood cultures and other studies. 4. We will go ahead and drop the daptomycin as we have no indication of ongoing MRSA infection and his nasal MRSA screen is negative. 5. Will continue with meropenem as broad-spectrum antibacterial therapy, though I am inclined to think if he does have an infection it is not bacterial based on his negative physical exam and negative procalcitonin x2, as well as the absence of any left shift in his white count. 6. If this patient is infected I suspect the infection lies within the transplanted liver or the connections with relationship to that transplanted liver, or perhaps he has a disseminated viral process with CMV. 7. Will continue to follow this patient closely with you and will discuss it with the transplant people in [place]. Thank you very much.
--- NOTE | 2017-06-02 16:16 | NUR ---
Social Work: Multidisciplinary Rounds Pt discussed in am rounds; sw status remains unchanged. Pt screened in for assessment due to multiple providers however ORCHARDIST will not be able to complete assessment today due to high census. ORCHARDIST will attempt to see the patient tomorrow. SWETHA Escobar
[2017-06-02] MEDS ORDERED: VALGANCICLOVIR PO SCH (17:00)
--- NOTE | 2017-06-02 18:24 | NUR ---
Output Pt had a low urine output today being 350mls. Pt had taken in 700 orally and 250 via IV. Pt's urine output has slowly been decreasing over the past few days. Swing shift paged, no call back or new orders received yet. Will continue to monitor.
[2017-06-02] MEDS: DEXTROSE 5% IV SCH (22:10)
[2017-06-02] MEDS: GANCICLOVIR IV SCH (22:10)
[2017-06-03] MEDS: Sodium Chloride LOK Flush 10 mL Syringe IVFLUSH SCH ×3 (00:30→16:25)
[2017-06-03 03:37] LABS: Mean Corpuscular Hemoglobin 29.9 pg (27.0-35.0); Mean Corpuscular Volume 87.6 fL (81-100); Platelet Count 291 bil/L (150-400)
[2017-06-03 04:02] LABS: BASOPHILS % (AUTO) 0 % (0-3); EOSINOPHILS % (AUTO) 0 % (0-5); MONOCYTES % (AUTO) 8 % (4-12); NEUTROPHILS % (AUTO) 66 % (40-74)
[2017-06-03 04:08] LABS: ERYTHROCYTE SEDIMENTATION RATE 10 mm/hr (0-30)
[2017-06-03] MEDS: Meropenem Inj 2,000 MG in 0.9% Sodium Chloride 100 ML IV SCH ×3 (04:42→19:41)
[2017-06-03 05:07] VITALS: BP 132/82; PULSE 98; RESP 18; O2SAT 92
--- NOTE | 2017-06-03 05:44 | NUR ---
Meds/Tele Adjusted media production operator times to allow for non comparabilities, Med: Acthina is still undr advisement and has been held, . A&O x3 using call light appropriately , Temp 39.2, gave 325 tylenol for fever. Saline locked when not recieving IV meds, 2L O2 per NC while sleeping. Tele: SR- S-Tach,
[2017-06-03 05:55] VITALS: PULSE 97
[2017-06-03 08:23] VITALS: BP 134/81; PULSE 105; RESP 19; O2SAT 93
[2017-06-03] MEDS: Trimethoprim-Sulfa 160 mg-800 mg Tablet PO SCH (08:33)
[2017-06-03] MEDS: Pantoprazole 40 mg ER24 Tablet PO SCH ×2 (08:33→19:41)
[2017-06-03] MEDS: Insulin LISPRO 300 Unit/3 mL Inj SUBQ SCH ×4 (08:34→22:00)
--- NOTE | 2017-06-03 10:10 | NUR ---
Social Work: Initial Assessment/Multidisciplinary Rounds D: Per EMR review, pt is a 57 year old male admitted for PE. Pt is [employer] out of State insurance. PCP is Va Ro PA-C. NOK is Alicia Ramírez, , . Advanced directives not complete- pt declined info from [facility]ER HELPER. Readmit score is high.01/19. Pt discussed in am rounds. Capacity for self care discussed; no concerns or needs at this time. CHASER HELPER met with the patient at bedside. Sw role explained, contact info and dcp checklist provided. See initial assessment. Pt lives on [address] with his in a single story home with 4 steps to enter. Pt uses no DME, is I with ambulation and self-care. Pt has never had HH or skilled rehab, and continues to drive. Pt expresses no concerns about his discharge plan and states that he intends to go home. Pt states his will transport him when he is ready. A: Pt who is I at baseline. P: Anticipate pt to discharge home via POV and no sw needs; CHASER HELPER to continue to follow to assess for needs. SWETHA Escobar Addendum: 06/03/17 at 1013 by KALA MEADOWS Amended: Links added.
[2017-06-03] MEDS: Dabigatran 150 mg Capsule PO SCH ×2 (10:22→19:41)
--- NOTE | 2017-06-03 11:41 | PROG NOTE ---
[address] [address] PROGRESS NOTE PATIENT: CHIP DILLON : 1960 MR#: [id number] ADMIT: 05/31/2017 JOB ID: [id number] DATE: 06/03/2017 INFECTIOUS DISEASE FOLLOW UP NOTE: REASON FOR FOLLOWUP: Sustained nonfocal fever in a recent liver transplant patient. INTERVAL HISTORY: Overnight, the patient had some chills which corresponded to more fever spikes. He does not have any particular feelings of being feverish nor any sweats, but he does have chills which he says are actually fairly mild. Aside from the chill episodes, he really has no symptoms and states he feels quite well except for perhaps some more than baseline fatigue. He specifically has no headache, sinus complaints or intraoral complaint. He has no cough, no shortness of breath and no chest pain of any kind. He denies any abdominal pain. Has a good appetite and no nausea, vomiting or diarrhea. No dysuria, urgency or frequency. He has one loose bowel movement a day which he says is his baseline. No skin rash or skin breakdown. He specifically says he has no pain in his right upper quadrant. PHYSICAL EXAMINATION: Reveals a comfortable appearing gentleman who is more cheerful than he has been. Of concern he spiked to 39.2 at midnight and he is 38 now. His pulse is 105. His respiratory rate is 19. His blood pressure 134/81 and he is saturating reasonably well on 1.5 L. The head is without any notable abnormalities. The sinuses are nontender. Oral cavity benign. Neck: Supple. His lungs are clear except for a very few crackles at the right base. His cardiac tone regular rate and rhythm without new murmur. His abdomen is notable for the scars related to his liver transplant but it is otherwise unremarkable. There is no tenderness in any area of the abdomen. No ascites appreciated and no cutaneous abnormalities. He does not have a Narvaez catheter nor does he have suprapubic tenderness. His extremities are warm, well perfused and without evidence of cellulitis or synovitis. LABORATORIES: Include a white count 9700, completely normal differential. Sed rate has been measured twice and it was 4 and then 10. Sodium 129, so slightly low. Creatinine 0.87. LFTs entirely normal. AST and ALT both right at 20. Bilirubin 0.5, alk phos 116. His CRP is 6.8. A procalcitonin x3 all about 0.2 with no trend. Urinalysis had no white cells. CMV quantitative PCR is pending. Fungitell is pending and galactomannan pending. Urine Legionella negative. MRSA screen negative. Blood cultures all negative and a respiratory viral PCR panel negative. IMAGING: Includes a chest x-ray from admission which was clear and the CT scan of the chest which disclosed a right lower lobe pulmonary embolism and was otherwise essentially normal. Note that on the CT scan there was some mild perihepatic ascites as well as pneumobilia. IMPRESSION: This is a difficult and confusing case of a gentleman who had a liver transplant about five months ago and is immunosuppressed with tacrolimus. He remains on prophylactic fluconazole as well as Bactrim which he has been on since his transplant. Additionally he has been on valganciclovir because he was CMV negative when he received the liver back in December from a CMV positive donor. As far as he knows there has not been any issues with CMV reactivation. We reviewed much of the 200 pages of records we received overnight from [facility]. It does not appear the patient had any significant infectious disease complications following his transplant. Note that in the time leading up to his transplant he had recurrent episodes of sepsis due to cholangitis as he had both cholangiocarcinoma as well as a far advanced liver disease and apparently some biliary stones at one point. The clinical conundrum here is that the patient looks entirely well this morning as he has throughout this short admission. He basically says except for some fatigue he feels fine and we have no real localizing sign of infection. My suspicion is that this is due to some process ongoing in his right upper quadrant and we need to better image that area. Additionally I am a bit concerned about the possibility of CMV, though his LFTs are negative and he states he has never missed a dose of his suppressive valganciclovir. RECOMMENDATIONS: 1. Will continue with meropenem as a broad-spectrum antibiotic while we complete our workup. 2. I have contacted the [facility] Infectious Disease Department and asked them to call me regarding this patient. I was told by the credit administration officer there is someone who will call me this morning and I await that call to discuss these issues. 3. As noted, a right upper quadrant ultrasound has been ordered. If this is nondiagnostic, I would think about going ahead with a contrast CT or any other right upper quadrant study as recommended by the GI service. 4. I would formally consult the GI service regarding this patient as it seems likely that his infection is preceding from the right upper quadrant even if his LFTs are normal. 5. We await a quantitative CMV sent to [facility]. 6. It remains possible that his entire fever process is due to his pulmonary embolism as seen on the CT angio, but I am reluctant to ascribe fevers over 39 degrees to a pulmonary embolism especially in an immunosuppressed patient such as this, until a complete ID workup is done. 7. Note that I will be off for the next nine days, but will be in the area. I can be reached by text or cell phone if need be about this or any other patient.
[2017-06-03 12:30] VITALS: BP 120/80; PULSE 94; RESP 18; O2SAT 93
[2017-06-03 15:53] VITALS: BP 125/85; PULSE 99; RESP 18; O2SAT 95
--- NOTE | 2017-06-03 16:01 | DRSVH ---
PROCEDURE: US VENOUS LEG DUPLEX BILATERAL INDICATIONS: 2nd PE in 1 month, on eliquis on most recent PE TECHNIQUE: Real-time imaging, as well as color and pulse Doppler interrogation, were performed of the deep veins of both legs from the inguinal ligament to the popliteal fossa. COMPARISON: None. FINDINGS: The deep veins are normally compressible, and free of intraluminal thrombus. Color and pu lse Doppler demonstrate normal phasic intravascular flow. There is normal augmentation response to d istal compression maneuver. IMPRESSION: Both legs are negative for DVT. Dictated by: Jose Juan Richardson M.D. on 06/03/2017 at 15:59 Approved by: Jose Juan Richardson M.D. on 06/03/2017 at 15:59
--- NOTE | 2017-06-03 17:06 | DRSVH ---
PROCEDURE: US ABDOMEN ([id number]) INDICATIONS: liver transplant with high fever TECHNIQUE: Real-time scanning was performed of the abdominal and retroperitoneal organs, with image documentatio n. COMPARISON: [facility] , CT, ABD/PELVIS W/CON (PNL), 04/27/2011, 13:49. US, ABDOMEN SONOGRAM, 04/07/2011, 7:27. FINDINGS: Liver: Liver is normal in size and homogeneous in echotexture. Small, 1.2 x 1.7 x 1.[address] near gallbladder fossa may represent hepatic cyst. Gallbladder: Not visualized due to bowel gas. Biliary ducts: Intrahepatic bile ducts are non-dilated. Extrahepatic bile duct caliber measures 4.8 mm. Normal is 6-7 mm or less in diameter, or 10 mm or less post-cholecystectomy. Pancreas: Not visualized due to bowel gas. Spleen: Surgically absent. Kidneys: Kidneys are normal in size and echotexture. Right kidney measures 11.3 cm long; left kidne y measures 12.2 cm long. No hydronephrosis or nephrolithiasis. No solid masses. 1.5 x 1.4 x 1.4 sev ere right renal cyst is noted. Aorta: Obscured by bowel gas. Iliacs: Obscured by bowel gas. IVC: Intrahepatic inferior vena cava is patent. Miscellaneous: No free abdominal fluid. IMPRESSION: 1. Study limited by bowel gas. 2. No free fluid identified. 3. A small anechoic lesion in the liver near the gallbladder fossa may represent a hepatic cyst. Dictated by: Maddison Tyler MD, PhD on 06/03/2017 at 16:58 Approved by: Maddison Tyler MD, PhD on 06/03/2017 at 17:04
--- NOTE | 2017-06-03 17:30 | NUR ---
Note Patient denied having pain throughout the shift. Elevated oral temperature this morning at 38.0 C treated with Tylenol 325mg PO as ordered PRN rechecked at noon time was 37.3. Again this evening temp at 39.0C and again was treated with Tylenol 325mg PO- consulted with MD no new orders were received. Up to the bathroom independently. Mild nausea this morning that resolved spontaneously. Patient was tolerating 75-100% of his meals. Oxygen saturation while awake and active in mid-90s on RA. Oxygen saturation while asleep 89-91%- patient was placed on 2l NC 02 with oxygen saturation improving to 95-97%.
--- NOTE | 2017-06-03 18:31 | PCM.PNMED ---
Subjective Date of Service Jun 03, 2017 Subjective Overnight Events: None Today, Mr. Ramírez is resting in bed comfortably and in no acute distress. He is still having fevers and chills at night. He mentions he's been feeling well and currently denies and nausea, vomiting, chest pain, shortness of breath, abdominal pain. Exam Vital Signs Vital Sign - Last Date Time Temp Pulse Resp B/P Pulse Ox O2 Delivery O2 Flow Rate FiO2 06/03/17 05:55 97 06/03/17 05:07 37.3 18 132/82 92 Room Air 06/02/17 16:29 2.00 Intake and Output 06/02/17 06/02/17 06/03/17 Cumulative From/Thru 15:00 23:00 07:00 05/31/17 16:25 - 06/03/17 06:28 Intake Total 950 ml 360 ml 4956 ml Output Total 350 ml 250 ml 1800 ml Balance 600 ml 110 ml 3156 ml Intake Oral 700 ml 150 ml 2090 ml IV Total 250 ml 210 ml 2666 ml Tube Feeding 200 ml Output Urine Total 350 ml 250 ml 1800 ml # Bowel Movements 1 1 3 Exam General: Obese male, no acute distress, well nourished, mildly diaphoretic HEENT: Normocephalic, atraumatic. External ears without defect. Extraoccular movements intact. Anicteric sclerae, moist conjunctivae. Neck: Supple with full range of motion. No jugular venous distension. Cardiovascular: Regular rate and rhythm with no murmurs, rubs or gallops. Pulmonary: Clear to auscultation bilaterally with no crackles, wheezes, or rhonchi. On room air Abdomen: Bowel tones present. Soft, nontender, nondistended. No hepatosplenomegaly or masses appreciated. Large incision scar in wish bone formation Extremities: No clubbing, cyanosis, or edema noted Skin: Normal temperature, turgor, and texture; no rash, ulcers, or subcutaneous nodules appreciated. Neurological: Cranial nerves grossly intact. Normal muscle strength, tone, and bulk. Psychiatric: Normal mood and affect. Alert and oriented to person, place, and time. Cooperative and pleasant Lab and Diagnostics Result Diagram: 06/03/17 0320 06/03/17 0320 Microbiology Item Value Date Time MRSA (PCR) - Final Complete 06/01/172114 Nasopharangeal Blood Culture Received 06/01/17 1730 Blood Aerobic And Anaerobic Bottle Pending Blood Culture Received 06/01/17 1725 Blood Aerobic And Anaerobic Bottle Pending Blood Culture - Preliminary Resulted 05/31/17 1818 Blood Aerobic And Anaerobic Bottle NO GROWTH AFTER 24 HOURS Blood Culture - Preliminary Resulted 05/31/17 1805 Blood Aerobic And Anaerobic Bottle NO GROWTH AFTER 24 HOURS X-Rays, CTs and MRIs PROCEDURE: CT ANGIO CHEST PULMONARY EMBOLISM ([id number]) IMPRESSION: 1. Right lower lobe pulmonary embolus. 2. Small hiatal hernia. 3. Small amount of perihepatic ascites. 4. Findings discussed with Nehemias Wilkinson on 05.31.17 at 1952 hrs. PROCEDURE: X-RAY CHEST ONE VIEW, PORTABLE ([id number]) IMPRESSION: No acute process. Assessment & Plan Abhijeet is a 57 yo M with a complex medical history who presents for concerns of acute onset of SOB and lethargy x 4 days. 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 He is admitted for acute recurrent Pulmonary emboli despite being on Eliquis 5 mg BID. Acute Recurrent Pulmonary Emboli, Present on admission Per recommendation of Dr. Gonzalez, patient switched to Xarelto. Started 15 mg BID. It was recommended not to start Warfarin as it is difficult to monitor with prophylactic antibiotics and tacrolimus. - Dr. Gonzalez recommended Pradaxa over Xarelto and has switched it over - Lower extremity doppler did not reveal DVT. - On Telemetry for CV monitoring - Echocardiogram results as above, troponin x2 negative Fever, Present on admission, active Likely due to the PE, but will continue monitoring for any other s/s of infection. He denied any fevers/chills, or pain on admit. - After extensive discussion with Dr. Mena and Dr. Poewll ( GI), they both did not feel this was related to his history of primary sclerosing cholangitis as the liver function tests are normal. Dr. Powell recommended if liver function tests become abnormal or if gram negative rods are seen on blood culture, then to consider further management. Both doctors reassured that pneumobilia on CT is likely normal given his liver transplant. - Infectious Disease consulted, recommend restarted valganciclovir. Discussion with [facility] by ID revealed the Donor of liver was CMV positive and valganciclovir should have been continued at least until June. - Pending Blood cultures, Fungal blood cultures, MRSA swab, fungitell assay - Currently on meropenem given complex medical history. - Valgancyclovir is restarted 06/02/17. - GI has been consulted - RUQ Abdominal ultrasound pending H/o of Liver Transplantation, Present on admission Uncertain of extent of transplant. May need to obtain records and consult the attending provider for further information. Dr. Nguyễn -()] To get in touch directly with transplant line for [facility] in [place], contact number is [phone]. Will continue his home prophylaxis meds, fluconazole, TMP-SMX There was some noted caitlin-hepatic ascites, which may need further evaluation if he develops any abdominal pain. Dehydration, Present on admission Patient's poor PO intake in the last few days may be why his Sodium and Chloride is mildly low Continue to monitor electrolytes Diabetes Mellitus Type 2, chronic Last A1c a month ago was 7.2. Will hold his Glipizide and metformin due to recent contrast imaging. Crohn's Disease, chronic Stable, not in exacerbation. Essential HTN, chronic VTE Prophylaxis: Other (heparin drip) Resuscitation Status: CPR: Attempt Resuscitation Attending Statement The patient was seen and examined together with Dr. Robledo on 06/03/2017 and I agree with the history, exam and plan as outlined in the note above. . Jaron Robledo DO Jun 03, 2017 06:42 Avelino Kim MD Jun 04, 2017 17:28
[2017-06-03 19:32] VITALS: BP 124/80; PULSE 105; RESP 18; O2SAT 91
[2017-06-03] MEDS: DEXTROSE 5% IV SCH (22:02)
[2017-06-03] MEDS: GANCICLOVIR IV SCH (22:02)
[2017-06-04] VITALS (7 sets, daily range): BP systolic 109–123; BP diastolic 69–80; PULSE 90–99; RESP 15–22; O2SAT 90–98
[2017-06-04] MEDS: Sodium Chloride LOK Flush 10 mL Syringe IVFLUSH SCH ×3 (00:30→16:21)
[2017-06-04 03:14] LABS: BASOPHILS % (AUTO) 2.5 % (0-3); EOSINOPHILS % (AUTO) 3.6 % (0-5); Mean Corpuscular Hemoglobin 30.1 pg (27.0-35.0); Mean Corpuscular Volume 87.3 fL (81-100); NEUTROPHILS % (AUTO) 44.7 % (40-74); Platelet Count 312 bil/L (150-400)
[2017-06-04] MEDS: Meropenem Inj 2,000 MG in 0.9% Sodium Chloride 100 ML IV SCH ×3 (04:32→23:15)
--- NOTE | 2017-06-04 05:29 | CONS ---
[address] [address] CONSULTATION REPORT PATIENT: CHIP DILLON : 1960 MR#: [id number] ADMIT: 05/31/2017 JOB ID: [id number] DATE OF SERVICE: 06/03/2017 REQUESTING PROVIDER: Jaron Robledo DO. REASON FOR CONSULTATION: Fever of unknown origin. HISTORY OF PRESENT ILLNESS: This is a 49-year-old male with a history of primary sclerosing cholangitis, ultimately progressed to cholangiocarcinoma in the context of longstanding Crohn's disease. Ultimately, the patient had a liver transplantation down at the [facility] in [place] in December of this year. He has been doing reasonably well until he developed a pulmonary embolism. It was discovered when he went down for his four month check at the [facility] in [place]. He was relatively asymptomatic and has had some imaging done, went back to his hotel room and he was told to immediately to return to the hospital and he was treated for PE. Apparently the source was not clearly identified. He does not recall any asymmetric swelling in any of his limbs. He really was not short of breath at that time either. He was commenced on Lovenox, which was eventually converted over to Eliquis. However in the last week or so, he has developed increased shortness of breath and dyspnea on exertion, some fatigue, intermittent fevers, chills and his stools have loosened up. Here in the hospital blood cultures have been negative. Nasopharyngeal swabs negative. He had a chest x-ray that showed no acute process. His initial CT scan on May 31 revealed a right lower lobe pulmonary embolus, a small hiatal hernia, a small amount of perihepatic ascites. He has subsequently had a fairly unremarkable ultrasound that was very limited secondary to bowel gas with a small anechoic lesion in the liver, near the gallbladder fossa, thought to represent a hepatic cyst. No free fluid was identified. Bilateral lower extremity venous Dopplers was negative. He has had an echo which did not reveal any evidence of any significant valvular disease. No vegetative lesions were described. ALLERGIES: No known drug allergies. MEDICATIONS: The patient has been takin. Bactrim. 2. Fluconazole. 3. Capecitabine. 4. Eliquis. 5. Lipitor. 6. Lisinopril. 7. Metoprolol. 8. Looks like he was also on omeprazole. 9. Tacrolimus. 10. Ursodiol. 11. Glimepiride. 12. He was supposed to be taking valganciclovir, but his insurance provider told him he did not need this even though he was supposed to use up until June 22. 13. The patient was taking Lialda historically for his Crohn's colitis, but recalls being told in [place] he did not need this medication any more, so he has not been taking it. FAMILY HISTORY: Noncontributory. SOCIAL HISTORY: The patient is . No substances. PAST MEDICAL HISTORY: PSC, cholangiocarcinoma, Crohn's colitis, type 2 diabetes, hypertension, liver transplantation and appendectomy. REVIEW OF SYSTEMS: Fevers and chills for the last week or so. Some shortness of breath. Increased looseness to his stool. He denies any odynophagia, dysphagia, heartburn, nausea, vomiting abdominal pain. No sore throat. No neurologic symptoms or headaches. No meningeal symptoms. There is no report of any cutaneous problems. Otherwise review is as per HPI. PHYSICAL EXAMINATION: Vital signs: Temperature this evening 37, pulse 105, breathing 18, blood pressure 124/80, P 91% on room air. The patient has a slightly flat affect, is in no distress. Alert, oriented, appropriate, cooperative, conversational. Skin: Warm and dry. Lungs: Clear bilaterally. Heart regular. No significant peripheral pitting edema. Abdomen is soft, nondistended. Bowel sounds present. I did not appreciate any tenderness. IMAGING: CT scan as above. The patient has a small amount of perihepatic ascites and pneumobilia. LABORATORIES: Microbiology as above. White count 9.7, hemoglobin 13.3, hematocrit 39.0, platelets 291. Normal differential. Procalcitonin level slightly elevated. Liver tests are completely normal. Albumin is 2.9. Sodium 129, potassium 3.7, chloride 96, bicarb 18, BUN 12, creatinine is 0.87, glucose is 144, calcium 8.1. INR on admission was 1.22. CMV serology is pending. EBV serology is pending. ASSESSMENT AND RECOMMENDATIONS: This is a 57-year-old male with a history of primary sclerosing cholangitis, associated cholangiocarcinoma, treated by way of resection and liver transplantation. He has recently developed pulmonary embolus and symptomatically got worse in the last week from a respiratory standpoint in spite of being on anticoagulation for three weeks prior. He has additionally developed some intermittent fevers and chills that have not been well explained, and his stool have become loose. He is currently not using his Lialda which could very easily explain the looseness of his stool, but I think that the context of his immunosuppression and Bactrim along with PPI, he ought to be excluded for C difficile infection or other enteric pathogens. I have submitted a stool for PCR. If that is negative, I think he should have an MRV abdomen. Additionally, he should perhaps be considered for cocci serology in light of him being recently in [place]. I will continue to follow. COMMENT: This is a no charge physician consultation. Please do not submit physician charges for this particular note as it is currently the Sabbath.
--- NOTE | 2017-06-04 05:47 | NUR ---
O2 to sleep/Tele On 2 L O2 HS one touch 124 , no sliding scale, still flat affect though able to smile intermittently, Not on telemetry, VS unremarkable. A&O tx. using call light appropriately., Denies pain.
[2017-06-04] MEDS: Insulin LISPRO 300 Unit/3 mL Inj SUBQ SCH ×4 (08:00→22:00)
[2017-06-04] MEDS: Pantoprazole 40 mg ER24 Tablet PO SCH ×2 (08:34→20:52)
[2017-06-04] MEDS: Dabigatran 150 mg Capsule PO SCH ×2 (08:34→20:52)
[2017-06-04] MEDS: Trimethoprim-Sulfa 160 mg-800 mg Tablet PO SCH (08:35)
--- NOTE | 2017-06-04 12:44 | PROG NOTE ---
[address] [address] PROGRESS NOTE PATIENT: CHIP DILLON : 1960 MR#: [id number] ADMIT: 05/31/2017 JOB ID: [id number] DATE: 06/04/2017 SUBJECTIVE: The patient continues to have some loose stool. His last fever was yesterday afternoon. Otherwise he is relatively asymptomatic. OBJECTIVE: Vital signs are stable. Pulse ox 98% on room air this morning. Afebrile, 36.9. Conversational. LABORATORY: Liver tests continue to be normal. Albumin 2.9. Sodium 128, potassium 3.8, chloride 94, bicarb 19, BUN 13, creatinine 0.75, glucose 144, calcium 7.8. ASSESSMENT AND RECOMMENDATIONS: This is a 57-year-old male status post liver transplant for cholangiocarcinoma associated with primary sclerosing cholangitis. This all occurred in the background of Crohn's colitis. He has recently developed pulmonary emboli of uncertain etiology. I would recommend he be considered for a magnetic resonance venogram of the abdomen. We are still waiting on stool PCR to exclude C. diff among other potential enteropathogenic organisms. He has been on fluconazole but I would additionally recommend cocci serology. COMMENT: This is a no-charge physician visit. Today is the Sabbath. Please do not submit a physician charge for this particular note.
--- NOTE | 2017-06-04 16:45 | NUR ---
Ambulating/fever/stools A&O today. Pleasant and cooperative with cares. Pt has had 2-3 loose stools today. One sent in for sample. States normal for him secondary to Crohns disease. Pt reported no pain of any kind throughout shift. Around 1600 pt reported feeling "feverish" however. Temp 37.5. APAP 325mg given. Temp down to 37.4 at last check. CBGs 123, 200 (but was just after eating). and 174. Pt got up to shower today and walked with spouse around the unit.
[2017-06-04] MEDS ORDERED: LIALDA 1.2 GM PO SCH (20:30)
[2017-06-04] MEDS: GANCICLOVIR IV SCH (21:05)
[2017-06-04] MEDS: DEXTROSE 5% IV SCH (21:05)
--- NOTE | 2017-06-04 22:38 | PCM.PNMED ---
Subjective Date of Service Jun 04, 2017 Subjective Overnight Events: None Today, Mr. Ramírez is resting in bed comfortably and in no acute distress. He mentions he's been feeling well and currently denies and nausea, vomiting, chest pain, shortness of breath, abdominal pain. Exam Vital Signs Vital Sign - Last Date Time Temp Pulse Resp B/P Pulse Ox O2 Delivery O2 Flow Rate FiO2 06/04/17 04:30 37.2 95 22 111/69 91 Nasal Cannula 2.00 Intake and Output 06/03/17 06/03/17 06/04/17 Cumulative From/Thru 15:00 23:00 07:00 05/31/17 16:25 - 06/04/17 06:01 Intake Total 1280 ml 900 ml 7136 ml Output Total 1000 ml 350 ml 3150 ml Balance 280 ml 550 ml 3986 ml Intake Oral 750 ml 600 ml 3440 ml IV Total 530 ml 300 ml 3496 ml Tube Feeding 200 ml Output Urine Total 1000 ml 350 ml 3150 ml # Voids 3 3 # Bowel Movements 3 Exam General: Obese male, no acute distress, well nourished, mildly diaphoretic HEENT: Normocephalic, atraumatic. External ears without defect. Extraoccular movements intact. Anicteric sclerae, moist conjunctivae. Neck: Supple with full range of motion. No jugular venous distension. Cardiovascular: Regular rate and rhythm with no murmurs, rubs or gallops. Pulmonary: Clear to auscultation bilaterally with no crackles, wheezes, or rhonchi. On room air Abdomen: Bowel tones present. Soft, nontender, nondistended. No hepatosplenomegaly or masses appreciated. Large incision scar in wish bone formation Extremities: No clubbing, cyanosis, or edema noted Skin: Normal temperature, turgor, and texture; no rash, ulcers, or subcutaneous nodules appreciated. Neurological: Cranial nerves grossly intact. Normal muscle strength, tone, and bulk. Psychiatric: Normal mood and affect. Alert and oriented to person, place, and time. Cooperative and pleasant Lab and Diagnostics Item Value Date Time Streptozyme < 20.0 IU/mL 06/01/172101 Aspergillus galactomannan Antigen 0.04 Index 06/01/172101 Fungal Antibodies 49 pg/mL 06/01/172101 Urine Legionella pneumophilia Ag Negative 06/01/17 0010 Result Diagram: 06/04/17 0255 06/04/17 0255 Microbiology Item Value Date Time MRSA (PCR) - Final Complete 06/01/17 2115 Nasopharangeal Blood Culture Received 06/01/17 1730 Blood Aerobic And Anaerobic Bottle Pending Blood Culture Received 06/01/17 1725 Blood Aerobic And Anaerobic Bottle Pending Blood Culture - Preliminary Resulted 05/31/17 1818 Blood Aerobic And Anaerobic Bottle NO GROWTH AFTER 24 HOURS Blood Culture - Preliminary Resulted 05/31/17 1805 Blood Aerobic And Anaerobic Bottle NO GROWTH AFTER 24 HOURS X-Rays, CTs and MRIs PROCEDURE: CT ANGIO CHEST PULMONARY EMBOLISM ([id number]) IMPRESSION: 1. Right lower lobe pulmonary embolus. 2. Small hiatal hernia. 3. Small amount of perihepatic ascites. 4. Findings discussed with Nehemias Wilkinson on 05.31.17 at 1952 hrs. PROCEDURE: X-RAY CHEST ONE VIEW, PORTABLE ([id number]) IMPRESSION: No acute process. Additional Diagnostics PROCEDURE: US ABDOMEN ([id number]) IMPRESSION: 1. Study limited by bowel gas. 2. No free fluid identified. 3. A small anechoic lesion in the liver near the gallbladder fossa may represent a hepatic cyst. Assessment & Plan Abhijeet is a 57 yo M with a complex medical history who presents for concerns of acute onset of SOB and lethargy x 4 days. 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 He is admitted for acute recurrent Pulmonary emboli despite being on Eliquis 5 mg BID. He has been switched over to Pradaxa. Acute Recurrent Pulmonary Emboli, Present on admission - Continue Pradaxa per Dr. Gonzalez - Lower extremity doppler did not reveal DVT. - On Telemetry for CV monitoring - Echocardiogram results as above, troponin x2 negative Fever, Present on admission, active Likely due to the PE, but will continue monitoring for any other s/s of infection. He denied any fevers/chills, or pain on admit. - After extensive discussion with Dr. Mena and Dr. Powell ( GI), they both did not feel this was related to his history of primary sclerosing cholangitis as the liver function tests are normal. Dr. Houston recommended if liver function tests become abnormal or if gram negative rods are seen on blood culture, then to consider further management. Both doctors reassured that pneumobilia on CT is likely normal given his liver transplant. - Infectious Disease consulted, recommend restarted valganciclovir. Discussion with [facility] by ID revealed the Donor of liver was CMV positive and valganciclovir should have been continued at least until June. - Pending Blood cultures, Fungal blood cultures, MRSA swab, fungitell assay - Currently on meropenem given complex medical history. - Valgancyclovir is restarted 06/02/17. - GI has been consulted - RUQ Abdominal ultrasound results as above H/o of Liver Transplantation, Present on admission Uncertain of extent of transplant. May need to obtain records and consult the attending provider for further information. Dr. Nguyễn -([phone])] To get in touch directly with transplant line for [facility] in [place], contact number is [phone]. Will continue his home prophylaxis meds, fluconazole, TMP-SMX There was some noted caitlin-hepatic ascites, which may need further evaluation if he develops any abdominal pain. Dehydration, Present on admission Patient's poor PO intake in the last few days may be why his Sodium and Chloride is mildly low Continue to monitor electrolytes Diabetes Mellitus Type 2, chronic Last A1c a month ago was 7.2. Will hold his Glipizide and metformin due to recent contrast imaging. Crohn's Disease, chronic Stable, not in exacerbation. Essential HTN, chronic Disposition: Likely 1-2 days depending on resolution of fevers and if medically stable. Patient will need to have follow up care with [facility] in regards to liver transplant and recent fevers. VTE Prophylaxis: Other (heparin drip) Resuscitation Status: CPR: Attempt Resuscitation Attending Statement The patient was seen and examined together with Dr. Robledo on 06/04/2017 and I agree with the history, exam and plan as outlined in the note above. . Jaron Robledo DO Jun 04, 2017 07:11 Avelino Kim MD Jun 05, 2017 07:47
[2017-06-05 00:30] VITALS: BP 116/80; PULSE 80; RESP 20; O2SAT 92
[2017-06-05] MEDS: Sodium Chloride LOK Flush 10 mL Syringe IVFLUSH SCH ×2 (00:30→08:22)
[2017-06-05 02:58] LABS: BASOPHILS % (AUTO) 2.3 % (0-3); Platelet Count 357 bil/L (150-400)
[2017-06-05 03:01] LABS: EOSINOPHILS % (AUTO) 5.1 % (0-5); MONOCYTES % (AUTO) 11.3 % (4-12); Mean Corpuscular Hemoglobin 30.5 pg (27.0-35.0); Mean Corpuscular Volume 87.4 fL (81-100); NEUTROPHILS % (AUTO) 34.9 % (40-74)
--- NOTE | 2017-06-05 04:12 | NUR ---
Cardio/Meds A&O x3 using call light appropriately,. room air when awake, 2 Liter O2 PRN HS, Ambulated the spangler today w spouse. Appears to feel better, apparent mood is better than prior days, Receiving Gancyclovir, meropenem, IV , on IV , rt AC . Tele DC'd , compliant w care.
[2017-06-05 04:32] VITALS: BP 119/75; PULSE 91; RESP 20; O2SAT 95
[2017-06-05] MEDS: Meropenem Inj 2,000 MG in 0.9% Sodium Chloride 100 ML IV SCH (04:49)
[2017-06-05] MEDS: Dabigatran 150 mg Capsule PO SCH (08:23)
[2017-06-05] MEDS: Trimethoprim-Sulfa 160 mg-800 mg Tablet PO SCH (08:23)
[2017-06-05] MEDS: Pantoprazole 40 mg ER24 Tablet PO SCH (08:24)
[2017-06-05 08:30] VITALS: BP 114/78; PULSE 91; RESP 18; O2SAT 94
[2017-06-05] MEDS: Insulin LISPRO 300 Unit/3 mL Inj SUBQ SCH ×2 (08:33→12:46)
--- NOTE | 2017-06-05 08:35 | CONS ---
[address] [address] CONSULTATION REPORT PATIENT: CHIP DILLON : 1960 MR#: [id number] ADMIT: 05/31/2017 JOB ID: [id number] DATE OF SERVICE: 06/02/2017 HISTORY OF PRESENT ILLNESS: The patient is a 57-year-old gentleman hospitalized with a right lower lobe pulmonary embolus in the complex setting of prior hilar cholangiocarcinoma status post liver transplant at [facility] about four months ago. He has a history of Crohn's disease and primary sclerosing cholangitis, which predisposed to his hilar cholangiocarcinoma. He was treated with neoadjuvant capecitabine 1500 mg by mouth twice daily with concurrent radiation therapy at the [facility], followed by maintenance capecitabine prior to transplant this December. Postoperatively he was on Lovenox injections twice daily, but about two weeks ago was switched to Eliquis. He developed acute shortness of breath a couple days prior to admission. He remains on tacrolimus 0.5 mg by mouth daily to prevent transplant rejection. He presented to the emergency department on May 31 with severe dyspnea. There was evidence of right lower lobe pulmonary emboli, and a small amount of perihepatic ascites. He is hospitalized and is on a heparin drip. We are asked to discuss his anticoagulation in this setting. PAST MEDICAL HISTORY: 1. Primary sclerosing cholangitis diagnosed in 2013. 2. 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 3. Crohn's disease diagnosed in 1995. 4. Gastroesophageal reflux disease. 5. Liver transplant December 2016 at [facility]. 6. Appendectomy at age 17. ALLERGIES: No known drug allergies. MEDICATIONS: 1. Meropenem 2 g IV q.8 hours. 2. Insulin per protocol. 3. Tacrolimus 0.5 mg p.o. daily. 4. Bactrim DS 1/2 tablet daily. 5. Diflucan 200 mg p.o. daily. 6. Atorvastatin 20 mg p.o. daily. 7. Metoprolol 50 mg p.o. b.i.d. 8. Pantoprazole 40 mg p.o. b.i.d. 9. Maalox p.r.n. 10. Ondansetron p.r.n. 11. Senokot p.r.n. 12. MiraLAX p.r.n. 13. Tylenol p.r.n. 14. Nitroglycerin p.r.n. 15. Morphine IV p.r.n. 16. Lorazepam p.r.n. 17. Temazepam p.r.n. FAMILY HISTORY: Mother of brain cancer from metastatic melanoma at age 70. Father of bladder cancer at age 91. No family history of cholangiocarcinoma or primary sclerosing cholangitis. SOCIAL HISTORY AND HABITS: The patient and his live on [address]. 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 He does not have any history of alcohol or tobacco use, but did smoke marijuana socially until about a year ago. REVIEW OF SYSTEMS: He has been fatigued. He has had fevers. He denies any acute change in vision or hearing. He denies any developing adenopathy. He has had no bleeding or atypical bruising. He has had significant dyspnea, which began 2-3 days ago. No significant nausea or vomiting. No diarrhea or constipation. No dysuria. He has had some mild edema. Remaining review of systems is unremarkable. PHYSICAL EXAMINATION: This is a pleasant, slightly older gentleman in no acute distress. Vitals: T-max 39.5, P 93, R 18, BP 133/79. Weight 103.7 kg. HEENT: Pupils equally round, reactive to light. Extraocular muscles intact. Sclerae anicteric. Conjunctivae pink. Mucous membranes moist. No oral lesions. Nodes no adenopathy in the neck or axilla. Chest a few basilar crackles. Cardiac exam regular rate and rhythm with normal S1, S2. No murmurs, rubs, or gallops appreciated. Abdomen is soft. Mild tenderness over the liver region. Scarring from the liver transplant surgery appears healthy. Extremities 1+ lower extremity edema, 1+ distal pulses, no calf tenderness. No cyanosis or clubbing. No petechiae or ecchymoses. Neurologic alert and cooperative. Mild generalized weakness, but without gross focal deficits. LABORATORIES: WBC 9.4, hemoglobin 14.2, hematocrit 41.4%, MCV 89, platelets 264,000. Sodium 131, potassium 4.7, BUN 13, creatinine 1.04. Glucose 140. AST 23, ALT 21, alkaline phosphatase 128. Total protein 5.9, albumin 3.2. PTT 45. ASSESSMENT AND PLAN: Right lower lobe pulmonary emboli on anticoagulation with Eliquis status post liver transplant for hilar cholangiocarcinoma: The patient had a four-month followup of his liver transplant in April at the [facility] in [place], [place], and it was found that he had pulmonary emboli. He was treated with Lovenox injections until about two weeks ago, at which time he was switched to Eliquis. Approximately one week later he developed increasing shortness of breath, and now has evidence of right lower lobe pulmonary emboli on current imaging. Eliquis is a direct Xa inhibitor. Recommend switching to Pradaxa 150 mg by mouth twice daily (dabigatran), which has a different mechanism of action. Namely, it is a direct thrombin inhibitor. Another option would be to consider long-term Lovenox therapy given that he was previously stable on that agent. At any rate, he should receive at least five days of intravenous heparin before discontinuing that agent. The use of warfarin would be complicated by interaction with antibiotics, which he requires, and his post transplant anti-rejection regimen. His fevers could be associated with either infection, or possibly with transplant rejection. Check tacrolimus level and monitor. Liver function tests appear normal, which is reassuring. Thank you for allowing us to participate in your patient's care. Cc: Dr. Jaron SMITH
[2017-06-05] MEDS ORDERED: VALG450T PO (14:59)
[2017-06-05] MEDS ORDERED: DABI150C PO (14:59)
--- NOTE | 2017-06-05 15:33 | PCM.DIMED ---
MASON HAYNES DO 06/05/17 1450: Discharge Instructions Date of Service Jun 05, 2017 Dates of Hospitalization May 31, 2017 at 22:16 Discharge Diagnosis Discharge Diagnosis Pulmonary Embolism. Medication Instructions Additional med instructions Lialda 1.2 Gm, Take 2 pills twice per day. Pradaxa 150 Mg Twice per day. Valganciclovir HCL 450 Mg Twice per day. Take through 06/22/17. Diet Discharge Diet: No restrictions Activity Discharge Activity: No restrictions Call your provider Call your provider for: Fever or Chills, Shortness of breath, Bleeding, Chest pain, Vomitting, Excessive diarrhea Patient Instructions Patient Instructions If you develop fevers of greater than 100.4 degrees F (38.0 C) or shortness of breath acutely, please contact your primary care physician and or return to the [facility]. Follow-up plan Follow up with Dr. Mena in 2-3 weeks time. Follow up with Dr. Gonzalez in 2-3 weeks time. Establish care with a primary care physician. Follow-up Provider: Sourav Gonzalez MD Follow-up with PCP in: 3 weeks (2-3 weeks) Provider: Huber Mena MD Follow-up in: 3 weeks (2-3 weeks.) Avelino Kim MD 06/06/17 1035: Discharge Instructions Attending's Statement The patient was seen and examined together with Dr. Haynes on 06/05/2017 and I agree with the history, exam and plan as outlined in the note above. . MASON HAYNES DO Jun 05, 2017 14:50 Avelino Kim MD Jun 06, 2017 10:35
[2017-06-05] MEDS ORDERED: MESA1.2T2 PO (15:34)
--- NOTE | 2017-06-05 16:03 | NUR ---
Discharge Pt was educated on all new medications. Pt and demonstrate understanding of teachings. Prescriptions were given by MD. Pt and this RN signed last page of discharge sheet. IVs were removed. Telemetry leads were removed. pt left with all personal belongings escorted by a staff member down to vehicle.
--- NOTE | 2017-06-05 17:26 | PCM.DC.MED ---
Discharge Summary Date of Service Jun 05, 2017 Dates of Hospitalization Date of Hospital Admission May 31, 2017 at 22:16 Date of Discharge: Jun 05, 2017 Providers: Admitting Physician: Jaron Magallanes MD Primary Care Physician: Va Ro PA-C Attending Physician: Avelino Kim MD Diagnosis at Time of Discharge Diagnosis at Time of Discharge Pulmonary Embolism. Procedures XRay, CTs & MRIs PROCEDURE: CT ANGIO CHEST PULMONARY EMBOLISM ([id number]) IMPRESSION: 1. Right lower lobe pulmonary embolus. 2. Small hiatal hernia. 3. Small amount of perihepatic ascites. 4. Findings discussed with Nehemias Wilkinson on 05.31.17 at 1952 hrs. PROCEDURE: X-RAY CHEST ONE VIEW, PORTABLE ([id number]) IMPRESSION: No acute process. Other Diagnostics PROCEDURE: US ABDOMEN ([id number]) IMPRESSION: 1. Study limited by bowel gas. 2. No free fluid identified. 3. A small anechoic lesion in the liver near the gallbladder fossa may represent a hepatic cyst. Brief History Abhijeet is a 57 yo M with a complex medical history who presents for concerns of acute onset of SOB and lethargy x 4 days. His history is pertinent for Crohn's disease, Dm2, and also primary sclerosing cholangitis with cholangiocarcinoma status post radiation therapy and recent liver transplant approximately 5 months ago in [place]. Patient reports that he had a 4 month follow-up of his liver transplantation in April, when it was found that he had a pulmonary emboli. As a result he was placed on Lovenox injection until he returned to [place]. Here he was switched from the injections to Eliquis, which he reports taking diligently for the past 1.5 weeks. He states that he was recovering well from the surgery and his breathing was somewhat diminished but at baseline prior to this episode. Four days ago, he noted sudden onset of SOB and gradual worsening. He noted some palpitations, but denies any CP, ROMERO, diaphoresis, abd pain, or fevers/chills. 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 He denies any recent illnesses and has not had a flare up of his Crohn's disease. He has had poor PO intake due to his SOB and being more lethargic in the last few days. He has slept most of the weekend and finally came in when his symptoms did not improve. He is on Bactrim, Fluconazole, and Valganciclovir prophylaxis until 06/22. It was found that he had not had a prescription for his Valganciclovir for at least 2 weeks. All specific tests have come back within normal limits thus far. He has remained afebrile and feeling nearly baseline. His medications have been restarted including Valganciclovir and Lialda. His Eliquis has been discontinued and replaced with Pradaxa. He has been discharged in stable condition with medications prescriptions and directions for close follow up care with both Dr. Mena and Dr. Gonzalez, in addition to establishing care with a primary care provider. Hospital Course Acute Recurrent Pulmonary Emboli - Switch from Eliquis to Pradaxa per Dr. Gonzalez. If it is also ineffective, we will consider Lovenox. - Lower extremity doppler did not reveal DVT. - Echocardiogram results as above, troponin x2 negative. Fever, Present on admission Likely due to the PE, but will continue monitoring for any other s/s of infection. He denied any fevers/chills, or pain on admit. - After extensive discussion with Dr. Mena and Dr. Powell ( GI), they both did not feel this was related to his history of primary sclerosing cholangitis as the liver function tests are normal. Dr. Powell recommended if liver function tests become abnormal or if gram negative rods are seen on blood culture, then to consider further management. Both doctors reassured that pneumobilia on CT is likely normal given his liver transplant. - Infectious Disease consulted, recommend restarted Valganciclovir. Discussion with [facility] by ID revealed the Donor of liver was CMV positive and valganciclovir should have been continued at least until June. - RUQ Abdominal ultrasound results as above - Valgancyclovir is restarted 06/02/17 and will continue through 06/22/17. - GI has been consulted. H/o of Liver Transplantation Uncertain of extent of transplant. Dr. Nguyễn -()] is contact. To get in touch directly with transplant line for [facility] in [place], contact number is [phone]. Will continue his home prophylaxis meds, fluconazole, TMP-SMX There was some noted caitlin-hepatic ascites, which may need further evaluation if he develops any abdominal pain. Dehydration Diabetes Mellitus Type 2, chronic Last A1c a month ago was 7.2. Crohn's Disease, chronic Stable, not in exacerbation. Restarted Mesalamine and follow up with GI as outpatient. Essential HTN, chronic Disposition: Discharged today in stable condition. Exam Vital Signs (Last) Date Time Temp Pulse Resp B/P Pulse Ox O2 Delivery O2 Flow Rate FiO2 06/05/17 08:30 37.0 91 18 114/78 94 Room Air 06/04/17 04:30 2.00 Exam General: Obese male, no acute distress, well nourished, mildly diaphoretic HEENT: Normocephalic, atraumatic. External ears without defect. Extraoccular movements intact. Anicteric sclerae, moist conjunctivae. Neck: Supple with full range of motion. No jugular venous distension. Cardiovascular: Regular rate and rhythm with no murmurs, rubs or gallops. Pulmonary: Clear to auscultation bilaterally with no crackles, wheezes, or rhonchi. On room air Abdomen: Bowel tones present. Soft, nontender, nondistended. No hepatosplenomegaly or masses appreciated. Large incision scar in wish bone formation Extremities: No clubbing, cyanosis, or edema noted Skin: Normal temperature, turgor, and texture; no rash, ulcers, or subcutaneous nodules appreciated. Neurological: Cranial nerves grossly intact. Normal muscle strength, tone, and bulk. Psychiatric: Normal mood and affect. Alert and oriented to person, place, and time. Cooperative and pleasant Test 05/31/17 17:50 06/01/17 00:10 06/01/17 00:47 06/01/17 03:30 Prothrombin Time 13.1sec (8.1-12.5) Prothromb Time International Ratio 1.22ratio Lipase 7U/L (13-60) Urine Legionella pneumophilia Ag Negative (Negative) Urine Color Yellow (YELLOW) Urine Appearance Clear (CLEAR,HAZY) Urine pH 5.5 (5.0-8.0) Urine Specific [place] 1.070 (1.003-1.035) Urine Protein Negativemg/dL (NEG,TRACE) Urine Glucose (UA) Negativemg/dL (NEGATIVE) Urine Ketones 40mg/dL (NEGATIVE) Urine Occult Blood Negative (NEGATIVE) Urine Nitrite Negative (NEGATIVE) Urine Bilirubin Negative (NEGATIVE) Urine Urobilinogen Normalmg/dL (NORMAL) Urine Leukocyte Esterase Negative (NEGATIVE) Urine RBC 0-2/hpf (0-2) Urine WBC 0-5/hpf (0-5) Urine Epithelial Cells Occasional/hpf (NONE-MOD) Urine Crystals None seen (NONE SEEN) Urine Bacteria Few/hpf (NONE-FEW) Urine Hyaline Casts Rare/lpf (NONE) Urine Granular Casts None seen (NONE SEEN) Urine Waxy Casts None seen (NONE SEEN) Urine Red Blood Cell Casts None seen (NONE SEEN) Urine White Blood Cell Casts None seen (NONE SEEN) Urine Mucus Present (None Seen) Urine Trichomonas None seen (NONE SEEN) Urine Yeast None (NONE SEEN) Urinalysis Comment None Urine Culture Reflexed Not indicated Magnesium Level 1.8mg/dL (1.6-2.6) Troponin T 0.010ug/L (0.0-0.011) Test 06/01/17 21:02 06/02/17 03:45 06/02/17 05:00 06/03/17 03:20 Activated Partial Thromboplast Time 45.0sec (22.8-33.0) Fungal Antibodies 49pg/mL (<80) Aspergillus galactomannan Antigen 0.04Index (0.00-0.49) Streptozyme < 20.0IU/mL (0.0-200.0) Lactic Acid Level 1.3mmol/L (0.4-2.0) Band Neutrophils % 5% (1-5) Erythrocyte Sedimentation Rate 10mm/hr (0-30) C-Reactive Protein 6.8mg/dL (0.0-0.5) Procalcitonin 0.17ng/mL (0.00-0.08) Test 06/03/17 11:35 06/04/17 18:18 06/05/17 02:35 White Blood Count 11.4th/mm3 (3.8-10.1) Red Blood Count 4.53mil/mm3 (4.40-5.80) Hemoglobin 13.8g/dL (13.8-17.2) Hematocrit 39.6% (41.0-50.0) Mean Corpuscular Volume 87.4fL (81-100) Mean Corpuscular Hemoglobin 30.5pg (27.0-35.0) Mean Corpuscular Hemoglobin Concent 34.8% (32.0-37.0) Red Cell Distribution Width 14.9% (12.3-15.4) Platelet Count 357bil/L (150-400) Neutrophils (%) (Auto) 34.9% (40-74) Lymphocytes (%) (Auto) 46.0% (14-46) Monocytes (%) (Auto) 11.3% (4-12) Eosinophils (%) (Auto) 5.1% (0-5) Basophils (%) (Auto) 2.3% (0-3) Hematology Comments Wbc Sodium Level 132mEq/L (134-144) Potassium Level 3.9mEq/L (3.5-5.2) Chloride Level 97mEq/L (97-108) Carbon Dioxide Level 20mmol/L (18-29) Blood Urea Nitrogen 16mg/dL (6-24) Creatinine 0.82mg/dL (0.76-1.27) Estimat Glomerular Filtration Rate 103mL/min (>59) Glucose Level 162mg/dL (60-99) Calcium Level 8.0mg/dL (8.5-10.1) Total Bilirubin 0.4mg/dL (0.0-1.2) Aspartate Amino Transf (AST/SGOT) 17U/L (0-50) Alanine Aminotransferase (ALT/SGPT) 13U/L (0-44) Alkaline Phosphatase 106U/L (25-150) Total Protein 5.2g/dL (6.4-8.4) Albumin 2.9g/dL (3.4-5.0) Microbiology Results Item Value Date Time MRSA (PCR) - Final Complete 06/01/17 2115 Nasopharangeal Blood Culture Received 06/01/17 1730 Blood Aerobic And Anaerobic Bottle Pending Blood Culture Received 06/01/17 1725 Blood Aerobic And Anaerobic Bottle Pending Blood Culture - Preliminary Resulted 05/31/17 1818 Blood Aerobic And Anaerobic Bottle NO GROWTH AFTER 24 HOURS Blood Culture - Preliminary Resulted 05/31/17 1805 Blood Aerobic And Anaerobic Bottle NO GROWTH AFTER 24 HOURS Discharge Medications Discharge Medications Atorvastatin (Lipitor) 20 Mg Tablet 20 MG PO DAILY (Reported) Capecitabine (Capecitabine) 500 Mg Tablet 1,500 MG PO Q12H (Reported) ONE WEEK ON TWO WEEKS OFF Dabigatran Etexilate Mesylate (Pradaxa) 150 Mg Capsule 150 MG PO BID Prescribed by: MASON HAYNES DO Fluconazole (Fluconazole) 200 Mg Tablet 200 MG PO DAILY (Reported) Lisinopril (Lisinopril) 10 Mg Tablet 10 MG PO DAILY (Reported) Mesalamine (Lialda) 1.2 Gm Tablet.dr 1.2 GM PO BID (Reported) Mesalamine (Lialda) 1.2 Gm Tablet.dr 1.2 GM PO BID Take 2 pills twice per day. Prescribed by: MASON HAYNES DO Metformin HCl (Metformin HCl ER) 1,000 Mg [id number] 1,000 MG PO BIDWM (Reported ) Metoprolol Tartrate (Metoprolol Tartrate) 50 Mg Tablet 50 MG PO BID (Reported) Omeprazole (Omeprazole) 20 Mg Capsule.dr 20 MG PO BID (Reported) Omeprazole Magnesium (Prilosec Otc) 20 Mg Tablet.dr 40 MG PO BID (Reported) Sulfamethoxazole/Trimeth 400-80 mg (Bactrim 400-80 mg) 1 Each Tablet 1 TABLET PO DAILY (Reported) Tacrolimus Anhydrous (Tacrolimus) 0.5 Gm Powder 0.5 GM MC DAILY (Reported) Ursodiol (Ursodiol) 300 Mg Capsule 600 MG PO BID (Reported) Valganciclovir HCl (Valcyte) 450 Mg Tablet 450 MG PO BID Prescribed by: MASON HAYNES DO Additional med instructions Lialda 1.2 Gm, Take 2 pills twice per day. Pradaxa 150 Mg Twice per day. Valganciclovir HCL 450 Mg Twice per day. Take through 06/22/17. Followup Plan Follow-up plan Follow up with Dr. Mena in 2-3 weeks time. Follow up with Dr. Gonzalez in 2-3 weeks time. Establish care with a primary care physician. Discharge Diet: No restrictions Discharge Activity: No restrictions Patient Instructions If you develop fevers of greater than 100.4 degrees F (38.0 C) or shortness of breath acutely, please contact your primary care physician and or return to the [facility]. Follow-up Provider: Sourav Gonzalez MD Follow-up with PCP in: 3 weeks (2-3 weeks) Provider: Huber Mena MD Follow-up in: 3 weeks (2-3 weeks.) Time spent Greater than 30 minutes was spent in preparation of discharge with greater than 50% of that time dedicated to patient counseling and coordination of care. . Attending Statement The patient was seen and examined together with Dr. Haynes on 06/05/2017 and I agree with the history, exam and plan as outlined in the note above. . copies to: Sourav Gonzalez MD; Huber Mena MD, COREY P DO Jun 05, 2017 16:45 Avelino Kim MD Jun 06, 2017 10:48
--- NOTE | 2017-06-05 17:37 | PROG NOTE ---
[address] [address] PROGRESS NOTE PATIENT: CHIP DILLON : 1960 MR#: [id number] ADMIT: 05/31/2017 JOB ID: [id number] DATE: 06/05/2017 SUBJECTIVE: The patient has been afebrile since the afternoon of June 03. The precise etiology remains unknown. He does not have any evidence of C. diff. He is interested in discharge home. OBJECTIVE: Vitals stable. Patient conversational. His was present for our conversation. LABORATORY: Stable. Hemoglobin 13.8, white count 11.4, platelets 357. ASSESSMENT AND RECOMMENDATIONS: A 57-year-old male who is status post liver transplant for cholangiocarcinoma associated with primary sclerosing cholangitis (PSC). This has been complicated by the development of recurrent pulmonary embolus. The 2nd one occurred while on anticoagulation, which is certainly concerning. I would like to see how he does back on the Lialda in that his stools over the last week have loosened since discontinuing this medication. My plan is to talk with Radiology about any other ideas they might have as regards further imaging of his transplanted liver to ensure there is absolutely no focus of thrombus that may serve as the recurring source of pulmonary emboli.
== END 2017-06-05 16:24 | disposition home or self-care (01) | DRG 176 ==
LOC: SED 16:20 → PCC 22:16
PROVIDERS: ADMIT Hospitalist; ATTEND Internal Medicine
DX: I26.99 Other pulmonary embolism without acute cor pulmonale (principal); K50.90 Crohn's disease, unspecified, without complications; Z94.4 Liver transplant status; E86.0 Dehydration; E11.9 Type 2 diabetes mellitus without complications; I10 Essential (primary) hypertension; Z79.01 Long term (current) use of anticoagulants; Z85.09 Personal history of malignant neoplasm of other digestive organs; R50.9 Fever, unspecified; Z92.3 Personal history of irradiation; Z92.21 Personal history of antineoplastic chemotherapy; Z79.84 Long term (current) use of oral hypoglycemic drugs